=== PATIENT | female | born 1965 | race Caucasian/White ===

== ENCOUNTER 2020-01-15 13:26 | Outpatient (CLI) | payer BC, SELFPAY ==
--- NOTE | ~2020-01-15 | MM_ITS ---
EXAMINATION: MM screening anival BI w anny HISTORY: Screening TECHNIQUE: Craniocaudal and mediolateral oblique 3-D tomosynthesis images were obtained and synthetic 2-D images were generated. CAD analysis was submitted and interpreted. COMPARISON: Comparison to multiple prior studies sequentially, with oldest reviewed study dated 09/25. BREAST PARENCHYMAL COMPOSITION: The breasts are heterogeneously dense, which may obscure small masses . FINDINGS: There is no evidence of suspicious mass, calcification, or architectural distortion to sugg est malignancy in either breast. There has been no suspicious interval change. IMPRESSION: 1. No mammographic evidence of malignancy. 2. Recommend routine screening mammography in one year. BI-RADS Category 1: Negative Reviewed, dictated and finalized at location A.
== END 2020-01-15 13:27 | disposition home or self-care (01) ==
LOC: ANHIMG 13:29
PROVIDERS: PCP Family Medicine; Visit Provider Nurse Practitioner Obstetrics & Gynecology
DX: Z12.31 Encounter for screening mammogram for malignant neoplasm of breast (principal)
CPT/HCPCS: 77063; 77067

== ENCOUNTER 2021-01-18 09:56 | Outpatient (CLI) | payer BC, SELFPAY ==
--- NOTE | ~2021-01-18 | MM_ITS ---
EXAMINATION: MM screening anival BI w anny HISTORY: Screening mammogram TECHNIQUE: Craniocaudal and mediolateral oblique 3-D tomosynthesis images were obtained and synthetic 2-D images were generated. CAD analysis was submitted and interpreted. COMPARISON: 01/15/2020, 10/20/2018, 10/16/2017 bilateral digital screening mammogram examinations BREAST PARENCHYMAL COMPOSITION: The breasts are extremely dense, which lowers the sensitivity of mamm ography. FINDINGS: There is no evidence of suspicious mass, calcification, or architectural distortion to sugg est malignancy in either breast. There has been no suspicious interval change. IMPRESSION: 1. No mammographic evidence of malignancy. 2. Recommend routine screening mammography in one year. BI-RADS Category 1: Negative Reviewed, dictated and finalized at location A.
== END 2021-01-18 09:57 | disposition home or self-care (01) ==
LOC: ANHIMG 09:57
PROVIDERS: PCP Family Medicine; Visit Provider Nurse Practitioner Obstetrics & Gynecology
DX: Z12.31 Encounter for screening mammogram for malignant neoplasm of breast (principal)
CPT/HCPCS: 77063; 77067

== ENCOUNTER 2022-06-15 08:04 | Outpatient (CLI) | payer OTHER, SELFPAY ==
--- NOTE | ~2022-06-15 | MM_ITS ---
EXAMINATION: MM screening anival BI w anny HISTORY: Screening mammogram TECHNIQUE: Craniocaudal and mediolateral oblique 3-D tomosynthesis images were obtained and synthetic 2-D images were generated. CAD analysis was submitted and interpreted. COMPARISON: 01/18/2021, 01/15/2020, 10/20/2018 bilateral screening mammogram examinations BREAST PARENCHYMAL COMPOSITION: The breasts are extremely dense, which lowers the sensitivity of mamm ography. FINDINGS: There grouped subtle microcalcifications in the posterior upper outer right breast. Diagnos tic right mammogram with magnification views is recommended for more definitive evaluation. No suspicious mass, architectural distortion, malignant calcification or skin, skin thickening or re traction of either breast is noted otherwise. IMPRESSION: 1. Subtle indeterminate grouped microcalcifications in the posterior upper outer right breast 2. Diagnostic right mammogram with magnification views is recommended. BI-RADS Category 0: Incomplete: Needs additional imaging evaluation. Reviewed, dictated and finalized at location B. IMPRESSION: 1. Subtle indeterminate grouped microcalcifications in the posterior upper oute r right breast 2. Diagnostic right mammogram with magnification views is recommended. BI-RADS Category 0: Incomplete: Needs additional imaging evaluation.
== END 2022-06-15 08:05 | disposition home or self-care (01) ==
LOC: ANHIMG 08:06
PROVIDERS: PCP Family Medicine; Visit Provider Nurse Practitioner Obstetrics & Gynecology
DX: Z12.31 Encounter for screening mammogram for malignant neoplasm of breast (principal); R92.0 Mammographic microcalcification found on diagnostic imaging of breast
CPT/HCPCS: 77063; 77067

== ENCOUNTER 2022-06-29 13:18 | Outpatient (CLI) | payer OTHER, SELFPAY ==
--- NOTE | ~2022-06-29 | MM_ITS ---
EXAMINATION: MM diagnostic anival RT w anny HISTORY: Follow-up right breast calcifications TECHNIQUE: Additional 3-D tomosynthesis images of the right breast were performed and synthetic 2-D i mages were generated. CAD analysis was submitted and interpreted. COMPARISON: Comparison to multiple prior studies sequentially, with oldest reviewed study dated 10/14. BREAST PARENCHYMAL COMPOSITION: The breasts are extremely dense, which lowers the sensitivity of mamm ography FINDINGS: There are no suspicious masses or architectural distortion. There is a cluster of indetermi juana calcifications in the upper outer quadrant of the right breast posteriorly. IMPRESSION: 1. Clustered indeterminate right breast calcifications, upper outer quadrant. 2. Stereotactic right breast biopsy recommended. BI-RADS category 4, suspicious findings. Reviewed, dictated and finalized at location A.
== END 2022-06-29 13:19 | disposition home or self-care (01) ==
LOC: ANHIMG 13:20
PROVIDERS: PCP Family Medicine; Visit Provider Nurse Practitioner Obstetrics & Gynecology
DX: R92.8 Other abnormal and inconclusive findings on diagnostic imaging of breast (principal); R92.1 Mammographic calcification found on diagnostic imaging of breast
CPT/HCPCS: 77061; 77065; G0279

== ENCOUNTER 2024-02-05 14:42 | Outpatient (CLI) | payer OTHER, SELFPAY ==
--- NOTE | ~2024-02-05 | MM_ITS ---
EXAMINATION: MM screening anival BI w anny HISTORY: Screening TECHNIQUE: Craniocaudal and mediolateral oblique 3-D tomosynthesis images were obtained and synthetic 2-D images were generated. CAD analysis was submitted and interpreted. COMPARISON: Comparison to multiple prior studies sequentially, with oldest reviewed study dated 10/16. BREAST PARENCHYMAL COMPOSITION: Dense: The breasts are extremely dense, which lowers the sensitivity of mammography. FINDINGS: There is no evidence of suspicious mass, calcification, or architectural distortion to sugg est malignancy in either breast. There has been no suspicious interval change. IMPRESSION: 1. No mammographic evidence of malignancy. 2. Recommend routine screening mammography in one year. BI-RADS Category 1: Negative Reviewed, dictated and finalized at location B. 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
== END 2024-02-05 14:43 | disposition home or self-care (01) ==
LOC: ANHIMG 14:44
PROVIDERS: PCP Family Medicine; Visit Provider Nurse Practitioner Obstetrics & Gynecology
DX: Z12.31 Encounter for screening mammogram for malignant neoplasm of breast (principal)
CPT/HCPCS: 77063; 77067

== ENCOUNTER 2024-03-20 08:51 | Outpatient (CLI) | payer OTHER, SELFPAY ==
--- NOTE | 2024-03-20 09:07 | ECHO_ITS ---
Patient Info Name: Savannah Guo Age: 58 years : 1965 Gender: Female Ht: 65 in Wt: 150 lbs BSA: 1.78 m2 HR: 53 bpm BP: 105 / 62 mmHg Technical Quality: Fair Exam Date: 03/20/2024 9:13 AM Exam Location: Echo Lab Patient Status: Outpatient Admit Date: 03/20/2024 Staff Ordering Physician: Tiffanie Nazario PA-C Engineering Specialist Technician: Sumeet Marie RDCS Attending Provider: Manju Gomez MD Referring Physician: Aravind MUNOZ; Exam Type: CA echo doppler color flow Study Info Indications - CARDIAC MURMUR Complete two-dimensional, color flow and Doppler transthoracic echocardiogram is performed. Summary 1. Complete two-dimensional, color flow and Doppler transthoracic echocardiogram is performed. 2. Left ventricular chamber dimension is normal. 3. Left ventricular systolic function is normal, estimated at 60-65%. 4. The left ventricular diastolic function is grade I diastolic dysfunction. 5. E/e' 7 is not elevated. 6. Left atrial chamber dimension is mildly enlarged. 7. There is trace mitral valve regurgitation. 8. No pulmonary hypertension, estimated pulmonary arterial systolic pressure is 30 mmHg. Left Ventricle E/e' 7 is not elevated. Left ventricular chamber dimension is normal. Left ventricular systolic function is normal, estimated at 60-65%. The left ventricular diastolic function is grade I diastolic dysfunction. Right Ventricle Right ventricular systolic function is normal and with normal TAPSE 2.5 cm. Right ventricular chamber dimension is normal. Left Atria Left atrial chamber dimension is mildly enlarged. Right Atria Right atrial chamber dimension is normal. Aortic Valve The aortic valve is trileaflet. There is no aortic valve stenosis. There is no aortic valve regurgitation. Pulmonic Valve There is no pulmonic regurgitation. Mitral Valve There is no mitral valve stenosis. There is trace mitral valve regurgitation. Tricuspid Valve There is no tricuspid valve regurgitation. No pulmonary hypertension, estimated pulmonary arterial systolic pressure is 30 mmHg. Pericardium/Pleural There is no pericardial effusion. Inferior Vena Cava Normal inferior vena cava with >50% collapse upon inspiration consistent with normal right atrial pressure, 5 mmHg. Aorta The aortic root size at the sinus of Valsalva is normal. Left Ventricular Outflow Tract Name Value Normal LVOT 2D LVOT Diameter 1.7 cm LVOT Doppler LVOT Peak Gradient 4 mmHg LVOT Mean Gradient 2 mmHg LVOT VTI 26 cm LVOT VTI/AV VTI Ratio 0.8 LVOT Stroke Volume 60 ml LVOT CO 5.0 l/min LVOT CI 2.8 l/min/m2 Pulmonic Valve Name Value Normal RVOT Doppler RVOT Peak Gradient 4 mmHg PV Doppler PV Peak Gradient 5 mmHg Mitral Valve Name Value Normal MV Doppler MV Peak Gradient 5 mmHg MV Mean Gradient 2 mmHg MV Decel [place] 362 cm/s2 MV PHT 76 ms MV Area (PHT) 2.9 cm2 4.0-5.0 MV Area (Cont Eq VTI) 1.4 cm2 MV Diastolic Function MV E Peak Velocity 94 cm/s MV A Peak Velocity 69 cm/s MV E/A 1.4 MV Decel Time 261 ms MV Annular TDI MV E/e' (Septal) 9.2 <=8.0 MV E/e' (Lateral) 6.8 <=8.0 MV E/e' (Average) 8.0 Tricuspid Valve Name Value Normal TV Regurgitation Doppler TR Peak Velocity 249 cm/s TR Peak Gradient 24 mmHg Estimated PAP/RSVP RA Pressure 5 mmHg <=5 PA Systolic Pressure 30 mmHg <36 RV Systolic Pressure 30 mmHg <36 Aorta Name Value Normal Ascending Aorta Ao Root Diameter (MM) 2.4 cm Ao Root Diam Index (MM) 1.3 cm/m2 Aortic Valve Name Value Normal AV Doppler AV Peak Velocity 131 cm/s AV Peak Gradient 7 mmHg AV Mean Gradient 4 mmHg AV VTI 34 cm AV Area (Cont Eq VTI) 1.8 cm2 >=3.0 AV Area (Cont Eq Neil) 1.8 cm2 AV Regurgitation 2D LVOT Area 2.3 cm2 Ventricles Name Value Normal LV Dimensions 2D/MM IVS Diastolic Thickness (2D) 1.0 cm 0.6-1.0 LVID Diastole (2D) 4.2 cm 3.8-5.2 LVIW Diastolic Thickness (2D) 0.8 cm 0.6-0.9 LVID Systole (2D) 2.6 cm 2.2-3.5 LVOT Diameter 1.7 cm LV Mass (2D Cubed) 121.14 g 67.00-162.00 LV Mass Index (2D Cubed) 68 g/m2 43-95 Relative Wall Thickness (2D) 0.38 LV Fractional Shortening/Ejection Fraction 2D/MM LV Fractional Shortening (2D) 37 % 27-45 LV EF (2D Teicholz) 68 % 54-74 LV Diastolic Volume (4C MOD) 79 ml LV EF (4C MOD) 46 % LV Diastolic Volume (2C MOD) 81 ml LV EF (2C MOD) 64 % LV Diastolic Volume (BP MOD) 81 ml 46-106 LV Diastolic Volume Index (BP MOD) 45 ml/m2 29-61 LV Systolic Volume (BP MOD) 37 ml 14-42 LV Systolic Volume Index (BP MOD) 21 ml/m2 8-24 LV EF (BP MOD) 55 % 54-74 LV Diastolic Length (4C) 7.5 cm LV Systolic Length (4C) 6.3 cm LV Stroke Volume (4C MOD) 36 ml Atria Name Value Normal LA Dimensions LA Dimension (MM) 3.4 cm 2.7-3.8 LA Volume (4C A-L) 51 ml LA Volume (BP A-L) 49 ml RA Dimensions RA Area (4C) 11.2 cm2 <=18.0 Report Signatures
== END 2024-03-20 08:52 | disposition home or self-care (01) ==
PROVIDERS: PCP Family Medicine; Visit Provider Family Medicine
DX: R01.1 Cardiac murmur, unspecified (principal); I51.89 Other ill-defined heart diseases; I51.7 Cardiomegaly
CPT/HCPCS: 93306

== ENCOUNTER 2024-10-03 19:43 | Emergency (ER) | payer OTHER, SELFPAY ==
[2024-10-03 19:45] VITALS: BP 116/70; PULSE 72; RESP 16; TEMP 36.9; O2SAT 100
--- NOTE | 2024-10-03 19:56 | ED.URI ---
HPI - URI/Sore Throat General Chief Complaint: Upper Respiratory Infection Stated Complaint: sore throat Time Seen by Provider: 10/03/24 19:52 Source: patient and RN notes reviewed Mode of arrival: ambulatory Limitations: no limitations History of Present Illness HPI Narrative: Patient presents today complaining of sore throat since yesterday. Currently rates her pain 7/10, which increases with swallowing. She has tried no medication for symptoms prior to arrival. Denies any additional symptoms to include cough, congestion, rhinorrhea. She is also complaining of some diarrhea, 4-5 times per day, for the past week. Denies blood or mucus in the stool. Denies abdominal pain, nausea or vomiting. She has tried some Kaopectate for the diarrhea. Related Data Home Medications ?Medication ?Instructions ?Recorded ?Confirmed ?Last Taken ?Type aspirin 81 mg tablet,delayed 81 mg PO DAILY 03/02/20 04/29/24 Unknown History release (Adult Low Dose Aspirin) furosemide 20 mg tablet 20 mg PO QAM 03/02/20 04/29/24 Unknown History propranolol 20 mg tablet 20 mg PO Q12H 03/02/20 04/29/24 Unknown History spironolactone 50 mg tablet 50 mg PO DAILY 03/02/20 04/29/24 Unknown History (Aldactone) loratadine 10 mg tablet (Claritin) 10 mg PO DAILY 06/29/22 04/29/24 Unknown History thiamine HCl (vitamin B1) 100 mg 100 mg PO DAILY 04/29/24 04/29/24 Unknown History capsule Allergies Allergy/AdvReac Type Severity Reaction Status Date / Time ciprofloxacin Allergy Unknown Unknown Verified 10/03/24 20:06 Penicillins Allergy Unknown Unknown Verified 10/03/24 20:06 [facility] Past Medical History Medical History JAK2 gene mutation Portal vein thrombosis Portal hypertension Hypertension Portal HTN Migraine Polycythemia Family History Family History Grandparent Family history of malignant neoplasm of breast Mother Family history of malignant neoplasm of breast in first degree relative Father Patient's father is Social History Social History Smoking status: Never smoker Second hand tobacco smoke exposure: No Alcohol intake: current Substance use: never Substance use type: does not use Lack of Transportation: No Lack of Food: Never True Current Housing: I Have Housing Concerned About Future Housing: No Difficulty Paying Gas/Electric Bills: No Difficulty Paying for Meds: No Currently Unemployed: No Education: Bachelor's Degree Difficulty w/ Childcare or Family Care: No Living arrangements: with family Gender identity (if verbalized by the patient): Female Sexual Orientation (if Verbalized by the Patient): Straight or Heterosexual Spiritual care concerns: No Agree to blood products: Yes Comments At time of signature, I have reviewed and agree with nursing past medical, surgical, social and family history unless otherwise noted. Please see nursing chart for further information. There is no relevant family history pertinent to the presenting complaint Exam Narrative: GENERAL: Well-appearing, well-nourished, and in no acute distress. HEAD: Normocephalic, atraumatic. EYES: EOMI. No redness or drainage. Conjunctivae normal. ENT: Mucous membranes pink and moist. Nares clear. No rhinorrhea. TMs normal bilaterally. Throat scantly erythematous without edema or exudate. Uvula midline. Grimaces with swallowing. NECK: Normal AROM. Supple. No lymphadenopathy. CHEST: No respiratory distress. Clear to auscultation. HEART: Regular rate and rhythm. No murmur appreciated. ABDOMEN: Soft, nontender, nondistended, normal active bowel sounds. EXTREMITIES: Normal range of motion. No edema. SKIN: Warm, dry, no rash. Capillary refill normal. Normal skin turgor. NEURO: No focal deficits. Alert and oriented x3. Gait steady. PSYCH: Normal affect. No signs of depression or anxiety. Course Course Level of Care: Express Care Visit Vital Signs Vital signs: Vital Signs Temperature 98.4 F 10/03/24 19:45 Pulse Rate 72 10/03/24 19:45 Respiratory Rate 16 10/03/24 19:45 Blood Pressure 116/70 10/03/24 19:45 Pulse Oximetry 100 10/03/24 19:45 Oxygen Delivery Room Air 10/03/24 19:45 Temperature 98.4 F 10/03/24 19:45 Pulse Rate 72 10/03/24 19:45 Respiratory Rate 16 10/03/24 19:45 Blood Pressure 116/70 10/03/24 19:45 Pulse Oximetry 100 10/03/24 19:45 Oxygen Delivery Room Air 10/03/24 19:45 Reviewed MDM - URI/Sore Throat MDM Narrative Medical decision making narrative: 58-year-old female patient with a negative rapid strep screen and culture pending. Complaining of sore throat and diarrhea. No other associated symptoms for either complaint. Sick contacts. Sore throat is likely viral. Strict ED precautions given for both complaints. Discussed with patient that she may need additional stool testing regarding her persistent diarrhea. She does see a food prep worker and will contact them for further evaluation. Vital signs are stable today with no red flag symptoms. She is stable for outpatient treatment. Differential Diagnosis Differential diagnosis: Likely viral infection, pharyngitis and other (strep throat, mononucleosis, diarrhea, enteritis) Lab Data Attestation: I reviewed the patient's lab results. Labs: Lab Results 10/03/24 Range/Units 20:06 POC Grp A Strep Screen Negative (Negative) Critical Care Time Critical Care Time Critical Care Time: No Discharge Plan Discharge Clinical Impression: Pharyngitis Qualifiers: Pharyngitis/tonsillitis etiology: unspecified etiology Qualified Code(s): J02.9 - Acute pharyngitis, unspecified Diarrhea Qualifiers: Diarrhea type: unspecified type Qualified Code(s): R19.7 - Diarrhea, unspecified Patient Disposition: Home Condition: Stable Instructions: Pharyngitis (ED), Acute Diarrhea (ED) Additional Instructions: Your rapid strep swab was negative today at [facility]. You will be notified in a few days if the culture comes back positive for strep, and appropriate antibiotics will be called in for you at that time. Your symptoms are likely due to a viral illness, which is not treated with antibiotics. Viral symptoms can be present for up to 7-10 days. Take Tylenol or ibuprofen for fever or pain. Rest and stay hydrated. Follow up with your PCP in 7 days if symptoms are not improving. Go to the ER immediately if you have any difficulty breathing or swallowing. Please follow-up with your food prep worker regarding your persistent diarrhea. As discussed, if you develop abdominal pain, blood or mucus in your stool, or unable to take in fluids to compensate for the amount of fluid loss, please go to the ER for further evaluation. Patient Language: Hungarian Prescriptions: No Action spironolactone [Aldactone] 50 mg tablet 50 mg PO DAILY propranolol 20 mg tablet 20 mg PO Q12H aspirin [Adult Low Dose Aspirin] 81 mg tablet,delayed release (DR/EC) 81 mg PO DAILY furosemide 20 mg tablet 20 mg PO QAM nortriptyline 10 mg capsule 20 mg PO DAILY Qty: 180 1RF loratadine [Claritin] 10 mg tablet 10 mg PO DAILY momelotinib 200 mg tablet 200 mg PO DAILY Qty: 1 0RF thiamine HCl (vitamin B1) 100 mg capsule 100 mg PO DAILY Follow-up/Referrals: Manju Gomez MD [Primary Care Provider] - Time of Disposition: 20:09
[2024-10-03 20:06] LABS: EDSTREPNEGPOS1 Negative (Negative)
== END 2024-10-03 20:13 | disposition home or self-care (01) ==
PROVIDERS: Emergency Provider Nurse Practitioner; PCP Family Medicine
DX: J02.9 Acute pharyngitis, unspecified (principal); R19.7 Diarrhea, unspecified; K76.6 Portal hypertension; Z15.89 Genetic susceptibility to other disease
CPT/HCPCS: 87081; 87880; 99213; G0463

== ENCOUNTER 2025-02-04 16:03 | Emergency (ER) | payer OTHER, SELFPAY ==
--- NOTE | ~2025-02-04 | XR_ITS ---
XR thoracic spine 3V 02/04/2025 16:31 Indication: Right-sided thoracic pain for 3 weeks. No injury. Procedure: 3 views thoracic spine Comparison: No prior studies for comparison. Findings: There is mild levocurvature of the thoracic spine. Vertebral body heights are maintained. No fracture, subluxation or dislocation. No paraspinal soft tissue abnormality. Pedicles intact. Surrounding osseous structures are unremarkable. There are cholecystectomy clips in the right upper abdomen. Impression: 1: Mild levoscoliosis of the thoracic spine. Reviewed, dictated and finalized at location O. TER CHARGER Impression: 1: Mild levoscoliosis of the thoracic spine.
--- NOTE | 2025-02-04 16:04 | ED_ITS ---
HPI - Back Pain/Injury General Chief Complaint: Back Pain/Injury Stated Complaint: Back Pain Time Seen by Provider: 02/04/25 16:04 Source: patient Mode of arrival: ambulatory Limitations: no limitations History of Present Illness HPI Narrative: Chapis is a 59-year-old female patient presenting to the clinic today with complaints of right-sided thoracic back pain x3 weeks. She reports last week she got out of the hospital from having a GI bleed. She has not been able to take any NSAIDs. Has been taking Tylenol and applying heating pad. States that this does help the pain but is very minimal relief. Pain is constant dull in her right mid back. Denies any radiation of pain. There is no rash. She denies any chest pain or shortness of breath. No injury to her back. No loss of bowel or bladder or numbness and tingling in her lower or upper extremities. Rates pain currently a 4/10. Related Data Home Medications ?Medication ?Instructions ?Recorded ?Confirmed ?Last Taken ?Type aspirin 81 mg tablet,delayed 81 mg PO DAILY 03/02/20 0 04/29/24 Unknown History release (Adult Low Dose Aspirin) furosemide 20 mg tablet 20 mg PO QAM 03/02/20 Unknown History propranolol 20 mg tablet 20 mg PO Q12H 03/02/2004/29 Unknown History spironolactone 50 mg tablet 50 mg PO DAILY 03/02/20 Unknown History (Aldactone) loratadine 10 mg tablet (Claritin) 10 mg PO DAILY 03/12/2404/29/24 Unknown History thiamine HCl (vitamin B1) 100 mg 100 mg PO DAILY 04/2904/29/24 Unknown History capsule allopurinol 300 mg tablet mg 02/04/25 Unknown History imiquimod 5 % topical cream packet topical 02/04/25 U nknown History thiamine HCl (vitamin B1) 100 mg mg 02/04/25 Unknown History tablet Allergies Allergy/AdvReac Type Severity Reaction Status Date / Time ciprofloxacin Allergy Unknown Unknown Verified 02/04/25 16:12 Penicillins Allergy Unknown Unknown Verified 02/04/25 16:12 Review of Systems Review of Systems: Pertinent positives per HPI. Patient denies any fever, chills, rash, headache, visual changes, dizziness, cough, runny nose, sore throat, shortness of breath, chest pain, palpitations, nausea, vomiting, diarrhea, constipation, abdominal pain, or any urinary issues. [facility] Past Medical History Medical History JAK2 gene mutation Portal vein thrombosis Portal hypertension Hypertension Portal HTN Migraine Polycythemia Family History Family History Grandparent Family history of malignant neoplasm of breast Mother Family history of malignant neoplasm of breast in first degree relative Father Patient's father is Social History Social History Second hand tobacco smoke exposure: No Alcohol intake: current Substance use: never Substance use type: does not use Lack of Transportation: No Lack of Food: Never True Current Housing: I Have Housing Concerned About Future Housing: No Difficulty Paying Gas/Electric Bills: No Difficulty Paying for Meds: No Currently Unemployed: No Education: Bachelor's Degree Difficulty w/ Childcare or Family Care: No Living arrangements: with family Gender identity (if verbalized by the patient): Female Sexual Orientation (if Verbalized by the Patient): Straight or Heterosexual Spiritual care concerns: No Agree to blood products: Yes Comments At the time of my signature, I reviewed and agree with the nursing past medical, surgical, social, and family history. There is no relevant family history pertinent to the patient complaint. Exam Narrative: General: Well-developed, well nourished, in no apparent distress Head: Normocephalic, atraumatic. Cardio: Regular rate and rhythm, s1 and s2 normal, no murmur appreciated. Resp: Clear to auscultation bilaterally, no rhonchi, rales, wheezing or rubs. Musculoskeletal: No deformity, tender to palpation over the right thoracic spine/paraspinous musculature just below the bra line, grossly normal range of motion, muscle strength strong and equal in bilateral upper and lower extremities. SLT negative, patellar reflexes 2/4 bilaterally, negative foot drop, normal gait and station Course Course Emergency Course: Portions of this record may have been created with voice recognition software. Level of Care: Express Care Visit Vital Signs Vital signs: Vital Signs Temperature 36.2 C L 02/04/25 16:11 Pulse Rate 72 02/04/25 16:11 Respiratory Rate 16 02/04/25 16:11 Blood Pressure 118/66 02/04/25 16:11 Pulse Oximetry 100 02/04/25 16:11 Temperature 36.2 C L 02/04/25 16:11 Pulse Rate 72 02/04/25 16:11 Respiratory Rate 16 02/04/25 16:11 Blood Pressure 118/66 02/04/25 16:11 Pulse Oximetry 100 02/04/25 16:11 Vital signs reviewed MDM - Back Pain/Injury MDM Narrative Medical decision making narrative: At the time of visit patient is resting comfortably on the exam table. Patient appears to be nontoxic. Complaints of right-sided thoracic back pain x3 weeks. She reports last week she got out of the hospital from having a GI bleed. She has not been able to take any NSAIDs. Has been taking Tylenol and applying heating pad. States that this does help the pain but is very minimal relief. Pain is constant dull in her right mid back. Denies any radiation of pain. There is no rash. She denies any chest pain or shortness of breath. No injury to her back. No loss of bowel or bladder or numbness and tingling in her lower or upper extremities. Rates pain currently a 4/10. Tender to palpation over the right thoracic spine/paraspinous musculature just below the bra line, grossly normal range of motion, muscle strength strong and equal in bilateral upper and lower extremities. SLT negative, patellar reflexes 2/4 bilaterally, negative foot drop, normal gait and station. X-ray of the thoracic spine was ordered Diagnostics: X-ray of the thoracic spine is negative for any sign of fracture or malalignment. Does show mild levoscoliosis of the thoracic spine. Plan: I suspect patient has right-sided thoracic back pain. Recommend lidocaine patches and muscle relaxer. Supportive measures were discussed with the patient and they voiced understanding discharge instructions and agrees to treatment plan. Return precautions reviewed Differential Diagnosis Differential diagnosis: Likely lumbar radiculopathy, strain of lumbar region and thoracic back pain Imaging Data Radiologist's impression: ITS Impressions Thoracic Spine X-Ray 02/04/25 16:34 Impression: 1: Mild levoscoliosis of the thoracic spine. Discharge Plan Discharge Clinical Impression: Acute thoracic back pain Qualifiers: Back pain laterality: right Qualified Code(s): M54.6 - Pain in thoracic spine Patient Disposition: Home Condition: Stable Instructions: Antibiotic Form, Back Pain (ED) Additional Instructions: X-rays negative for any sign of fracture or malalignment of the thoracic spine. Does show mild level scoliosis of the thoracic spine Take any prescription medication only as prescribed-cyclobenzaprine Be mindful of sedation precautions given to you if taking a muscle relaxer. May use heat or ice to the affected area May continue Tylenol as needed for pain Consider massage or chiropractor adjustment if this was discussed with provider May use blue emu, lidocaine patches, or asper cream to affected area- do not apply heat or ice directly over cream- can cause burn. Complete appropriate back stretching exercises. Follow up with your PCP in 3-5 days if symptom persist. Patient Language: Kittitian Prescriptions: New cyclobenzaprine 10 mg tablet 10 mg PO Q8H PRN (Reason: muscle spasm) 7 Days Qty: 21 0RF No Action thiamine HCl (vitamin B1) 100 mg tablet imiquimod 5 % cream in packet TOPICAL allopurinol 300 mg tablet spironolactone [Aldactone] 50 mg tablet 50 mg PO DAILY propranolol 20 mg tablet 20 mg PO Q12H aspirin [Adult Low Dose Aspirin] 81 mg tablet,delayed release (DR/EC) 81 mg PO DAILY furosemide 20 mg tablet 20 mg PO QAM nortriptyline 10 mg capsule 20 mg PO DAILY Qty: 180 1RF loratadine [Claritin] 10 mg tablet 10 mg PO DAILY momelotinib 200 mg tablet 200 mg PO DAILY Qty: 1 0RF thiamine HCl (vitamin B1) 100 mg capsule 100 mg PO DAILY Follow-up/Referrals: Jason,MD Manju [Primary Care Provider, [facility]] Time of Disposition: 16:46 Quality NIHSS Nursing Documentation ED NIHSS nursing documentation: reviewed/agree
[2025-02-04 16:11] VITALS: BP 118/66; PULSE 72; RESP 16; TEMP 36.2; O2SAT 100
== END 2025-02-04 16:47 | disposition home or self-care (01) ==
PROVIDERS: Emergency Provider Nurse Practitioner Family; PCP Family Medicine
DX: M54.6 Pain in thoracic spine (principal); K76.6 Portal hypertension; Z15.89 Genetic susceptibility to other disease; Z86.718 Personal history of other venous thrombosis and embolism
CPT/HCPCS: 72072; 99213; G0463

== ENCOUNTER 2025-02-18 19:53 | Emergency (ER) | payer OTHER, SELFPAY ==
--- NOTE | ~2025-02-18 | XR_ITS ---
EXAMINATION: XR chest 1V portable DATE: 02/18/2025 21:07 INDICATION: Leukocytosis. Recent ERCP with biliary stent placement. TECHNIQUE: A single frontal view of the chest was obtained. COMPARISON: None. FINDINGS: Heart size is normal. Lungs are clear of acute processes. IMPRESSION: 1. No acute findings in the AP portable chest. Reviewed, dictated and finalized at location T. ESSOR OF MANAGEMENT
--- NOTE | ~2025-02-18 | CT_ITS ---
CT HEAD NON-CONTRAST Clinical History: mental status changes Comparison: None Technique: Unenhanced axial images skull base to vertex Coronal, sagittal reformats CT images acquired with automatic exposure control for dose reduction DLP: 605 mGy-cm Findings: Global atrophy. Sulci, ventricles: Unremarkable. No intracerebral hemorrhage. No evidence acute territorial infarct. No mass effect, midline shift. Bony calvarium intact. Visualized paranasal sinuses: Clear. Mastoid air cells: Clear. IMPRESSION: 1. No acute intracranial findings. Reviewed, dictated and finalized at location R. SLATIVE DIRECTOR
--- NOTE | ~2025-02-18 | CT_ITS ---
EXAMINATION: CT abdomen pelvis w con DATE: 02/18/2025 21:54 INDICATION: Leukocytosis. TECHNIQUE: Computed tomography (CT) of the abdomen and pelvis was performed with 100 mL Omnipaque 350 intravenous contrast. Automated exposure control and iterative reconstruction technique were employed. The dose-length product was 495.88 mGy-cm. COMPARISON: CT abdomen 04/19/2011 FINDINGS: The visualized portions of the lung bases demonstrate mild atelectasis. A calcified right lung nodule is consistent with old granulomatous disease. No pleural effusion. The heart size is normal. No pericardial effusion. There is a 1.5 cm hypodense mass in right hepatic lobe. Pneumobilia is noted. There is a stent in the common duct. There are changes of cholecystectomy. Calcifications in the spleen are consistent with old granulomatous disease. There is mild splenomegaly. There is a 12 mm cyst in the body of pancreas, likely a pseudocyst. The adrenal glands and kidneys are normal. There is a periumbilical ventral hernia containing fat and ascites. The appendix is normal. There are no dilated loops of bowel. There is a moderate volume of stool in the colon. There is a small volume of ascites. 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 There is a splenorenal portacaval shunt. There is a periumbilical portacaval shunt. There are widespread enlarged mesenteric veins. There is thrombus in mesenteric veins in left abdomen best appreciated on coronal images. There is a 7.8 x 5.5 x 4.9 cm rim-enhancing fluid collection around the ascending colon. There is a edema of the intra-abdominal fat. There are no pathologically enla rged lymph nodes. There is mild thoracic and lumbar spondylosis. IMPRESSION: 1. 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 2. Portal venous hypertension. 3. Periumbilical ventral hernia containing fat. 4. Small volume of ascites. 5. 7.8 x 5.5 x 4.9 cm rim-enhancing fluid collection around the ascending colon, consistent with abscess. 6. 1.5 cm hypodense mass in right hepatic lobe, which may be benign or malignant. Reviewed, dictated and finalized at location E. H REPAIRER IMPRESSION: 1. 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 2. Portal venous hypertension. 3. Periumbilical ventral hernia containing fat. 4. Small volume of ascites. 5. 7.8 x 5.5 x 4.9 cm rim-enhancing fluid collection around the ascending colon , consistent with abscess. 6. 1.5 cm hypodense mass in right hepatic lobe, which may be benign or malignan t.
--- OUTSIDE RECORDS SUMMARY | 2025-02-18 05:00 | XMS_ITS ---
Author Organization [facility] Address [address] [place] [address] Care Team Providers Care Cabin Supervisor Name Role Phone JIL TEAGUE, JOHN Primary Care Provider Stephanie Solorzano Unavailable [phone] AceStu Behzad [phone] REASON FOR VISIT back pain Encounters Encounter Location Date Provider Diagnosis [facility] [id number] 02/18/2025 Stu Bello Plan Of Treatment Next Appt Details Provider Name:Stu Bello, 1 04/22/2024 01:30:00 PM, [address] [place] [address], [id number], Progress Notes * AYAANArmandoB:1965 (59 yo F)Acc No.[id number]:02/18/2025 Progress Notes Patient: Savannah ALSTON Provider: ZHANG Perez :1965 A ge:59 Y S ex:Female Date:02/18/2025 Address:[address] [place] [address] [id number] Pcp:JOHN LEY MD Subjective: * Chief Complaints: * 1 . Back pain. * Medical History: Objective: * Vitals: Assessment: Plan: * Treatment: * * Electronic signature of ZHANG Do on 02/19/2025 at 05:07 AM ADVERTISING SALES ASSISTANT Sign off status: Pending * Provider: ZHANG Perez Date: 04/20/2024 Generated for Printi ng/Faxing/eTransmitting on: 04/21/2024 05:07 AM ADVERTISING SALES ASSISTANT
[2025-02-18 19:58] VITALS: BP 127/61; PULSE 123; RESP 20; TEMP 36; O2SAT 100
--- NOTE | 2025-02-18 20:02 | ECG_ITS ---
Test Date: 2025-02-18 20:13:43 Measurements Intervals [place] Rate: 124 P: 36 MD: 147 QRS: 3 QRSD: 80 T: 140 QT: 303 QTc: 435 Interpretive Statements SINUS TACHYCARDIA T-WAVE ABNORMALITY, CONSIDER ISCHEMIA Electronically Signed On 02-18-2025 22:32:56 ACTIVITIES LEADER by Yosef Manley D.O
[2025-02-18 20:15] LABS: Hematocrit 26.6 % (37.0-47.0); Hemoglobin 8.0 g/dL (12.0-15.0); Mean Corpuscular HGB Conc 30.1 g/dl (32-36); Mean Corpuscular Hemoglobin 26.8 pg (26-34); Mean Corpuscular Volume 89.0 fl (80-100); Platelet Count Result 324 k/mm3 (150-375); Red Blood Count 2.99 M/mm3 (4.2-5.4); White Blood Count 27.0 K/mm3 (4.5-10.0)
[2025-02-18 20:27] LABS: Alanine Aminotransferase 17 U/L (6-35); Albumin Level 3.7 g/dL (3.5-5.1); Alkaline Phosphatase 183 U/L (38-126); Anion Gap 8 mmol/L (4-12); Aspartate Amino Transferase 31 U/L (14-36); Bilirubin,Total 1.7 mg/dL (0.2-1.3); Blood Urea Nitrogen 26 mg/dL (7-17); Calcium 10.0 mg/dL (8.4-10.2); Carbon Dioxide 28 mmol/L (22-30); Chloride 95 mmol/L (98-107); Estimated CRCL calculation 41 ml/min; Estimated Glomerular Filt Rate 45; Glucose 155 mg/dL (65-110); Potassium 3.7 mmol/L (3.4-5.0); Sodium 131 mmol/L (137-145); Total Protein 7.1 g/dL (6.3-8.2)
[2025-02-18 20:34] LABS: INR 1.3; Prothrombin Time 16.7 Seconds (11.1-14.7)
[2025-02-18 20:35] LABS: Partial Thromboplastin Time 32.5 Seconds (22.3-36.8)
[2025-02-18 20:46] LABS: Band Neutrophils Percent 6 % (0-6); Basophils Absolute Manual 0.27 K/mm3 (0.0-0.1); Basophils Percent Manual 1 % (0-1); Eosinophils Absolute Manual 0.81 K/mm3 (0.02-0.50); Eosinophils Percent Manual 3 % (0-4); Lymphocytes Absolute Manual 2.16 K/mm3 (1.1-4.5); Lymphocytes Percent Manual 8.0 % (18-44); Monocytes Absolute Manual 1.89 K/mm3 (0.1-0.90); Monocytes Percent Manual 7 % (3-9); Neutrophils Absolute Manual 21.87 K/mm3 (1.3-6.7); Neutrophils Percent Manual 75 % (46-73); Schistocytes 1+; Total Cells Counted 100
[2025-02-18 20:47] LABS: Anisocytosis 3+; Hypochromasia 1+
[2025-02-18 20:48] LABS: Polychromasia Occasional
[2025-02-18 21:35] LABS: Troponin I < 0.012 ng/mL (0.000-0.034)
[2025-02-18 21:43] LABS: Ammonia 26 umol/L (9-30)
[2025-02-18 21:43] LABS: Procalcitonin 0.3 ng/mL
[2025-02-18 22:07] LABS: Influenza A QL RT-PCR Negative (Negative); Influenza B QL RT-PCR Negative (Negative); RSV RNA, RT-PCR Negative (Negative); SARS-CoV-2 RNA PCR Negative (Negative)
[2025-02-18 22:19] VITALS: O2SAT 100
--- NOTE | 2025-02-18 23:47 | ED.GENADULT ---
HPI - General Adult General Chief complaint: Altered Mental Status <Liban Diaz MD - Last Filed: 02/19/25 01:42> Stated complaint: AMS x 3 days/fatigue <Liban Diaz MD - Last Filed: 02/19/25 01:42> Time Seen by Provider: 02/18/25 21:00 <Liban Diaz MD - Last Filed: 02/19/25 01:42> History of Present Illness HPI narrative: Patient is a 59-year-old female who presents emergency department with chief complaint of altered mental status and not feeling well per the patient's family patient has been more confused and very lethargic the patient had an ERCP on the at [facility] and reports that her symptoms have been gradually progressive patient has not had any jaundice numbness not had a fever <Liban Diaz MD - Last Filed: 02/19/25 01:42> Related Data Home medications: Home Medications ?Medication ?Instructions ?Recorded ?Confirmed ?Last Taken ?Type aspirin 81 mg tablet,delayed 81 mg PO DAILY 03/02/20 02/19/25 Unknown History release (Adult Low Dose Aspirin) furosemide 20 mg tablet 40 mg PO QAM 03/02/20 02/19/25 Unknown History propranolol 20 mg tablet 20 mg PO Q12H 03/02/20 02/19/25 Unknown History spironolactone 50 mg tablet 50 mg PO DAILY 03/02/20 02/19/25 Unknown History (Aldactone) loratadine 10 mg tablet (Claritin) 10 mg PO DAILY 06/29/22 02/19/25 Unknown History thiamine HCl (vitamin B1) 100 mg 100 mg PO DAILY 04/29/24 02/19/25 Unknown History capsule allopurinol 300 mg tablet 300 mg PO DAILY 02/04/25 02/19/25 Unknown History imiquimod 5 % topical cream packet topical 02/04/25 Unknown History thiamine HCl (vitamin B1) 100 mg mg 02/04/25 Unknown History tablet momelotinib 200 mg tablet (Ojjaara) 200 mg PO DAILY 02/19/25 02/19/25 Unknown History pantoprazole 40 mg tablet,delayed 40 mg PO HS 02/19/25 02/19/25 Unknown History release (Protonix) <Liban Diaz MD - Last Filed: 02/19/25 01:42> Allergies/adverse reactions: Allergies Allergy/AdvReac Type Severity Reaction Status Date / Time ciprofloxacin Allergy Unknown Unknown Verified 02/19/25 00:17 Penicillins Allergy Unknown Unknown Verified 02/19/25 00:17 <Liban Diaz MD - Last Filed: 02/19/25 01:42> Review of Systems Review of Systems: A 10 system review of systems was completed on the patient and is negative except for what is stated in the HPI. Nursing and ancillary documentation was reviewed. <Liban Diaz MD - Last Filed: 02/19/25 01:42> PMFSH Past Medical History Medical History: Medical History JAK2 gene mutation Portal vein thrombosis Portal hypertension Hypertension Portal HTN Migraine Polycythemia <Liban Diaz MD - Last Filed: 02/19/25 01:42> Family History Family History: Family History Grandparent Family history of malignant neoplasm of breast Mother Family history of malignant neoplasm of breast in first degree relative Father Patient's father is <Liban Diaz MD - Last Filed: 02/19/25 01:42> Social History Social History: Social History Smoking status: Never smoker Second hand tobacco smoke exposure: No Alcohol intake: current Substance use: never Substance use type: does not use Lack of Transportation: No Lack of Food: Never True Current Housing: I Have Housing Concerned About Future Housing: No Difficulty Paying Gas/Electric Bills: No Difficulty Paying for Meds: No Currently Unemployed: No Education: Bachelor's Degree Difficulty w/ Childcare or Family Care: No Living arrangements: with family Gender identity (if verbalized by the patient): Female Sexual Orientation (if Verbalized by the Patient): Straight or Heterosexual Spiritual care concerns: No Agree to blood products: Yes <Liban Diaz MD - Last Filed: 02/19/25 01:42> Exam Narrative: GENERAL: Well-appearing, well-nourished, and in no acute distress. HEAD: Normocephalic, atraumatic. EYES: PERRLA and EOMI. ENT: Nares clear, no rhinorrhea or epistaxis. Mucous membranes dry. NECK: Supple. CHEST: Clear to auscultation. No respiratory distress. HEART: Regular rate and rhythm. No murmur heard. Normal peripheral pulses. ABDOMEN: Soft, nontender, nondistended, normal active bowel sounds. EXTREMITIES: Normal range of motion. No edema. SKIN: Warm, dry, no rash. NEURO: No focal deficits. Alert and oriented x3 slow to respond. PSYCH: Normal mood and affect. <Liban Diaz MD - Last Filed: 02/19/25 01:42> Course Vital Signs Vital signs: Vital Signs Temperature 96.8 F L 02/18/25 19:58 Pulse Rate 123 H 02/18/25 19:58 Respiratory Rate 20 02/18/25 19:58 Blood Pressure 127/61 02/18/25 19:58 Pulse Oximetry 100 02/18/25 19:58 Temperature 96.8 F L 02/18/25 19:58 Pulse Rate 119 H 02/19/25 17:16 Respiratory Rate 20 02/19/25 17:16 Blood Pressure 117/77 02/19/25 17:16 Pulse Oximetry 100 02/19/25 17:16 Oxygen Delivery Room Air 02/18/25 22:19 <Liban Diaz MD - Last Filed: 02/19/25 01:42> Vital Signs Temperature 96.8 F L 02/18/25 19:58 Pulse Rate 123 H 02/18/25 19:58 Respiratory Rate 20 02/18/25 19:58 Blood Pressure 127/61 02/18/25 19:58 Pulse Oximetry 100 02/18/25 19:58 Temperature 96.8 F L 02/18/25 19:58 Pulse Rate 119 H 02/19/25 17:16 Respiratory Rate 20 02/19/25 17:16 Blood Pressure 117/77 02/19/25 17:16 Pulse Oximetry 100 02/19/25 17:16 Oxygen Delivery Room Air 02/18/25 22:19 <Cisco Dodd III, DO - Last Filed: 02/19/25 18:33> Medical Decision Making MDM Narrative Medical decision making narrative: Differential diagnosis includes sepsis, biliary obstruction, pneumonia, CT head showed no acute abnormality Patient was fluid resuscitated heart rate is improved to 110 Laboratory studies showed a white count 20 7.0 hemoglobin was 8.0 blood cultures were obtained on the patient lactic acid was 1.9 the patient was empirically started on cefepime and vanc Due to the patient just having a ERCP with biliary stent placement at [facility] after discussion with the hospitalist locally felt the patient will be best served back at the facility where he had received case was discussed with the hospitalist at [facility] and was accepted by Dr. Coyle <Liban Diaz MD - Last Filed: 02/19/25 01:42> Differential diagnosis includes sepsis, biliary obstruction, pneumonia, CT head showed no acute abnormality Patient was fluid resuscitated heart rate is improved to 110 Laboratory studies showed a white count 20 7.0 hemoglobin was 8.0 blood cultures were obtained on the patient lactic acid was 1.9 the patient was empirically started on cefepime and vanc Due to the patient just having a ERCP with biliary stent placement at [facility] after discussion with the hospitalist locally felt the patient will be best served back at the facility where he had received case was discussed with the hospitalist at [facility] and was accepted by Dr. Coyle Still no bed at [facility]. Family understandable frustrated with lack of progress. Will feed patient and give po fluids. Will repeat labs. Yousif 1730 discussed with Shirley Strange. would prefer to transfer. <Cisco Dodd III, DO - Last Filed: 02/19/25 18:33> Vital Signs Vital Signs: Vital Signs Temperature 96.8 F L 02/18/25 19:58 Pulse Rate 123 H 02/18/25 19:58 Respiratory Rate 20 02/18/25 19:58 Blood Pressure 127/61 02/18/25 19:58 Pulse Oximetry 100 02/18/25 19:58 Temperature 96.8 F L 02/18/25 19:58 Pulse Rate 119 H 02/19/25 17:16 Respiratory Rate 20 02/19/25 17:16 Blood Pressure 117/77 02/19/25 17:16 Pulse Oximetry 100 02/19/25 17:16 Oxygen Delivery Room Air 02/18/25 22:19 <Liban Diaz MD - Last Filed: 02/19/25 01:42> Vital Signs Temperature 96.8 F L 02/18/25 19:58 Pulse Rate 123 H 02/18/25 19:58 Respiratory Rate 20 02/18/25 19:58 Blood Pressure 127/61 02/18/25 19:58 Pulse Oximetry 100 02/18/25 19:58 Temperature 96.8 F L 02/18/25 19:58 Pulse Rate 119 H 02/19/25 17:16 Respiratory Rate 20 02/19/25 17:16 Blood Pressure 117/77 02/19/25 17:16 Pulse Oximetry 100 02/19/25 17:16 Oxygen Delivery Room Air 02/18/25 22:19 <Cisco Lorenzver III, DO - Last Filed: 02/19/25 18:33> Lab Data Result diagrams: 02/18/25 20:09 02/18/25 20:09 <Liban Diaz MD - Last Filed: 02/19/25 01:42> Labs: Lab Results 02/18/25 02/18/25 02/18/25 Range/Units 20:09 21:19 21:20 WBC 27.0 H (4.5-10.0) K/mm3 RBC 2.99 L (4.2-5.4) M/mm3 Hgb 8.0 L (12.0-15.0) g/dL Hct 26.6 L (37.0-47.0) % MCV 89.0 (80-100) fl MCH 26.8 (26-34) pg MCHC 30.1 L (32-36) g/dl RDW 26.3 H (11.5-14.5) % Plt Count 324 (150-375) k/mm3 MPV 10.4 (7.4-10.4) fl Immature Gran % (Auto) Not Reportable Neut % (Auto) Not Reportable Lymph % (Auto) Not Reportable Nicholas % (Auto) Not Reportable Eos % (Auto) Not Reportable Baso % (Auto) Not Reportable Lymph # (Auto) Not Reportable Nicholas # (Auto) Not Reportable Eos # (Auto) Not Reportable Baso # (Auto) Not Reportable Abs Immat Gran (auto) Not Reportable Absolute Neuts (auto) Not Reportable Absolute Nucleated RBC Not Reportable Total Counted 100 Neutrophils % (Manual) 75 H (46-73) % Band Neutrophils % 6 (0-6) % Lymphocytes % (Manual) 8.0 L (18-44) % Monocytes % (Manual) 7 (3-9) % Eosinophils % (Manual) 3 (0-4) % Basophils % (Manual) 1 (0-1) % Nucleated RBC % Not Reportable Abs Neuts (Manual) 21.87 H (1.3-6.7) K/mm3 Abs Lymphs (Manual) 2.16 (1.1-4.5) K/mm3 Abs Monocytes (Manual) 1.89 H (0.1-0.90) K/mm3 Absolute Eos (Manual) 0.81 H (0.02-0.50) K/mm3 Abs Basophils (Manual) 0.27 H (0.0-0.1) K/mm3 Nucleated RBCs 5 % Platelet Estimate Adequate (Adequate) Polychromasia Occasional Hypochromasia 1+ Anisocytosis 3+ Schistocytes 1+ PT 16.7 H (11.1-14.7) Seconds INR 1.3 APTT 32.5 (22.3-36.8) Seconds Sodium 131 L (137-145) mmol/L Potassium 3.7 (3.4-5.0) mmol/L Chloride 95 L (98-107) mmol/L Carbon Dioxide 28 (22-30) mmol/L Anion Gap 8 (4-12) mmol/L BUN 26 H (7-17) mg/dL Creatinine 1.23 H (0.7-1.0) mg/dL Estim Creat Clear Calc 41 ml/min Estimated GFR 45 L (59 - ) Glucose 155 H (65-110) mg/dL Lactic Acid 1.9 (0.7-2.0) mmol/L Calcium 10.0 (8.4-10.2) mg/dL Total Bilirubin 1.7 H (0.2-1.3) mg/dL AST 31 (14-36) U/L ALT 17 (6-35) U/L Alkaline Phosphatase 183 H (38-126) U/L Ammonia 26 (9-30) umol/L Troponin I < 0.012 (0.000-0.034) ng/mL Total Protein 7.1 (6.3-8.2) g/dL Albumin 3.7 (3.5-5.1) g/dL Lipase Procalcitonin 0.3 ng/mL Urine Color (Yellow) Urine Appearance (Clear) Urine pH (5.0-9.0) Ur Specific [place] (1.001-1.035) Urine Protein (Negative) mg/dL Urine Glucose (UA) (Negative) mg/dL Urine Ketones (Negative) mg/dL Ur Blood (Man) (Negative) Urine Nitrate (Negative) Urine Bilirubin (Negative) Urine Urobilinogen (<2.0) mg/dL Leukocyte Esterase Rfl (Negative) RAHUL/UL Urine RBC (0-2) /hpf Urine WBC (0-3) /hpf Ur Squamous Epith Cells (Few) /hpf Urine Bacteria /hpf Urine Casts Influenza A (RT-PCR) Negative (Negative) Influenza B (RT-PCR) Negative (Negative) RSV (RT-PCR) Negative (Negative) SARS-CoV-2 RNA (RT-PCR) Negative (Negative) 02/19/25 02/19/25 Range/Units 00:09 18:16 WBC Pending (4.5-10.0) K/mm3 RBC Pending (4.2-5.4) M/mm3 Hgb Pending (12.0-15.0) g/dL Hct Pending (37.0-47.0) % MCV Pending (80-100) fl MCH Pending (26-34) pg MCHC Pending (32-36) g/dl RDW Pending (11.5-14.5) % Plt Count Pending (150-375) k/mm3 MPV Pending (7.4-10.4) fl Immature Gran % (Auto) Pending Neut % (Auto) Pending Lymph % (Auto) Pending Nicholas % (Auto) Pending Eos % (Auto) Pending Baso % (Auto) Pending Lymph # (Auto) Pending Nicholas # (Auto) Pending Eos # (Auto) Pending Baso # (Auto) Pending Abs Immat Gran (auto) Pending Absolute Neuts (auto) Pending Absolute Nucleated RBC Pending Total Counted Neutrophils % (Manual) (46-73) % Band Neutrophils % (0-6) % Lymphocytes % (Manual) (18-44) % Monocytes % (Manual) (3-9) % Eosinophils % (Manual) (0-4) % Basophils % (Manual) (0-1) % Nucleated RBC % Pending Abs Neuts (Manual) (1.3-6.7) K/mm3 Abs Lymphs (Manual) (1.1-4.5) K/mm3 Abs Monocytes (Manual) (0.1-0.90) K/mm3 Absolute Eos (Manual) (0.02-0.50) K/mm3 Abs Basophils (Manual) (0.0-0.1) K/mm3 Nucleated RBCs % Platelet Estimate (Adequate) Polychromasia Hypochromasia Anisocytosis Schistocytes PT (11.1-14.7) Seconds INR APTT (22.3-36.8) Seconds Sodium Pending (137-145) mmol/L Potassium Pending (3.4-5.0) mmol/L Chloride Pending (98-107) mmol/L Carbon Dioxide Pending (22-30) mmol/L Anion Gap Pending (4-12) mmol/L BUN Pending (7-17) mg/dL Creatinine Pending (0.7-1.0) mg/dL Estim Creat Clear Calc Pending ml/min Estimated GFR Pending (59 - ) Glucose Pending (65-110) mg/dL Lactic Acid (0.7-2.0) mmol/L Calcium Pending (8.4-10.2) mg/dL Total Bilirubin Pending (0.2-1.3) mg/dL AST Pending (14-36) U/L ALT Pending (6-35) U/L Alkaline Phosphatase Pending (38-126) U/L Ammonia (9-30) umol/L Troponin I (0.000-0.034) ng/mL Total Protein Pending (6.3-8.2) g/dL Albumin Pending (3.5-5.1) g/dL Lipase Pending Procalcitonin ng/mL Urine Color Yellow (Yellow) Urine Appearance Clear (Clear) Urine pH 6.5 (5.0-9.0) Ur Specific [place] > 1.045 H (1.001-1.035) Urine Protein Trace (Negative) mg/dL Urine Glucose (UA) Negative (Negative) mg/dL Urine Ketones Negative (Negative) mg/dL Ur Blood (Man) Negative (Negative) Urine Nitrate Negative (Negative) Urine Bilirubin Negative (Negative) Urine Urobilinogen 1.0 (<2.0) mg/dL Leukocyte Esterase Rfl Negative (Negative) RAHUL/UL Urine RBC 0-2 (0-2) /hpf Urine WBC 0-5 (0-3) /hpf Ur Squamous Epith Cells Few (Few) /hpf Urine Bacteria Rare /hpf Urine Casts 3-5 Influenza A (RT-PCR) (Negative) Influenza B (RT-PCR) (Negative) RSV (RT-PCR) (Negative) SARS-CoV-2 RNA (RT-PCR) (Negative) <Liban Diaz MD - Last Filed: 02/19/25 01:42> Lab Results 02/18/25 02/18/25 02/18/25 Range/Units 20:09 21:19 21:20 WBC 27.0 H (4.5-10.0) K/mm3 RBC 2.99 L (4.2-5.4) M/mm3 Hgb 8.0 L (12.0-15.0) g/dL Hct 26.6 L (37.0-47.0) % MCV 89.0 (80-100) fl MCH 26.8 (26-34) pg MCHC 30.1 L (32-36) g/dl RDW 26.3 H (11.5-14.5) % Plt Count 324 (150-375) k/mm3 MPV 10.4 (7.4-10.4) fl Immature Gran % (Auto) Not Reportable Neut % (Auto) Not Reportable Lymph % (Auto) Not Reportable Nicholas % (Auto) Not Reportable Eos % (Auto) Not Reportable Baso % (Auto) Not Reportable Lymph # (Auto) Not Reportable Nicholas # (Auto) Not Reportable Eos # (Auto) Not Reportable Baso # (Auto) Not Reportable Abs Immat Gran (auto) Not Reportable Absolute Neuts (auto) Not Reportable Absolute Nucleated RBC Not Reportable Total Counted 100 Neutrophils % (Manual) 75 H (46-73) % Band Neutrophils % 6 (0-6) % Lymphocytes % (Manual) 8.0 L (18-44) % Monocytes % (Manual) 7 (3-9) % Eosinophils % (Manual) 3 (0-4) % Basophils % (Manual) 1 (0-1) % Nucleated RBC % Not Reportable Abs Neuts (Manual) 21.87 H (1.3-6.7) K/mm3 Abs Lymphs (Manual) 2.16 (1.1-4.5) K/mm3 Abs Monocytes (Manual) 1.89 H (0.1-0.90) K/mm3 Absolute Eos (Manual) 0.81 H (0.02-0.50) K/mm3 Abs Basophils (Manual) 0.27 H (0.0-0.1) K/mm3 Nucleated RBCs 5 % Platelet Estimate Adequate (Adequate) Polychromasia Occasional Hypochromasia 1+ Anisocytosis 3+ Schistocytes 1+ PT 16.7 H (11.1-14.7) Seconds INR 1.3 APTT 32.5 (22.3-36.8) Seconds Sodium 131 L (137-145) mmol/L Potassium 3.7 (3.4-5.0) mmol/L Chloride 95 L (98-107) mmol/L Carbon Dioxide 28 (22-30) mmol/L Anion Gap 8 (4-12) mmol/L BUN 26 H (7-17) mg/dL Creatinine 1.23 H (0.7-1.0) mg/dL Estim Creat Clear Calc 41 ml/min Estimated GFR 45 L (59 - ) Glucose 155 H (65-110) mg/dL Lactic Acid 1.9 (0.7-2.0) mmol/L Calcium 10.0 (8.4-10.2) mg/dL Total Bilirubin 1.7 H (0.2-1.3) mg/dL AST 31 (14-36) U/L ALT 17 (6-35) U/L Alkaline Phosphatase 183 H (38-126) U/L Ammonia 26 (9-30) umol/L Troponin I < 0.012 (0.000-0.034) ng/mL Total Protein 7.1 (6.3-8.2) g/dL Albumin 3.7 (3.5-5.1) g/dL Lipase Procalcitonin 0.3 ng/mL Urine Color (Yellow) Urine Appearance (Clear) Urine pH (5.0-9.0) Ur Specific [place] (1.001-1.035) Urine Protein (Negative) mg/dL Urine Glucose (UA) (Negative) mg/dL Urine Ketones (Negative) mg/dL Ur Blood (Man) (Negative) Urine Nitrate (Negative) Urine Bilirubin (Negative) Urine Urobilinogen (<2.0) mg/dL Leukocyte Esterase Rfl (Negative) RAHUL/UL Urine RBC (0-2) /hpf Urine WBC (0-3) /hpf Ur Squamous Epith Cells (Few) /hpf Urine Bacteria /hpf Urine Casts Influenza A (RT-PCR) Negative (Negative) Influenza B (RT-PCR) Negative (Negative) RSV (RT-PCR) Negative (Negative) SARS-CoV-2 RNA (RT-PCR) Negative (Negative) 02/19/25 02/19/25 Range/Units 00:09 18:16 WBC Pending (4.5-10.0) K/mm3 RBC Pending (4.2-5.4) M/mm3 Hgb Pending (12.0-15.0) g/dL Hct Pending (37.0-47.0) % MCV Pending (80-100) fl MCH Pending (26-34) pg MCHC Pending (32-36) g/dl RDW Pending (11.5-14.5) % Plt Count Pending (150-375) k/mm3 MPV Pending (7.4-10.4) fl Immature Gran % (Auto) Pending Neut % (Auto) Pending Lymph % (Auto) Pending Nicholas % (Auto) Pending Eos % (Auto) Pending Baso % (Auto) Pending Lymph # (Auto) Pending Nicholas # (Auto) Pending Eos # (Auto) Pending Baso # (Auto) Pending Abs Immat Gran (auto) Pending Absolute Neuts (auto) Pending Absolute Nucleated RBC Pending Total Counted Neutrophils % (Manual) (46-73) % Band Neutrophils % (0-6) % Lymphocytes % (Manual) (18-44) % Monocytes % (Manual) (3-9) % Eosinophils % (Manual) (0-4) % Basophils % (Manual) (0-1) % Nucleated RBC % Pending Abs Neuts (Manual) (1.3-6.7) K/mm3 Abs Lymphs (Manual) (1.1-4.5) K/mm3 Abs Monocytes (Manual) (0.1-0.90) K/mm3 Absolute Eos (Manual) (0.02-0.50) K/mm3 Abs Basophils (Manual) (0.0-0.1) K/mm3 Nucleated RBCs % Platelet Estimate (Adequate) Polychromasia Hypochromasia Anisocytosis Schistocytes PT (11.1-14.7) Seconds INR APTT (22.3-36.8) Seconds Sodium Pending (137-145) mmol/L Potassium Pending (3.4-5.0) mmol/L Chloride Pending (98-107) mmol/L Carbon Dioxide Pending (22-30) mmol/L Anion Gap Pending (4-12) mmol/L BUN Pending (7-17) mg/dL Creatinine Pending (0.7-1.0) mg/dL Estim Creat Clear Calc Pending ml/min Estimated GFR Pending (59 - ) Glucose Pending (65-110) mg/dL Lactic Acid (0.7-2.0) mmol/L Calcium Pending (8.4-10.2) mg/dL Total Bilirubin Pending (0.2-1.3) mg/dL AST Pending (14-36) U/L ALT Pending (6-35) U/L Alkaline Phosphatase Pending (38-126) U/L Ammonia (9-30) umol/L Troponin I (0.000-0.034) ng/mL Total Protein Pending (6.3-8.2) g/dL Albumin Pending (3.5-5.1) g/dL Lipase Pending Procalcitonin ng/mL Urine Color Yellow (Yellow) Urine Appearance Clear (Clear) Urine pH 6.5 (5.0-9.0) Ur Specific [place] > 1.045 H (1.001-1.035) Urine Protein Trace (Negative) mg/dL Urine Glucose (UA) Negative (Negative) mg/dL Urine Ketones Negative (Negative) mg/dL Ur Blood (Man) Negative (Negative) Urine Nitrate Negative (Negative) Urine Bilirubin Negative (Negative) Urine Urobilinogen 1.0 (<2.0) mg/dL Leukocyte Esterase Rfl Negative (Negative) RAHUL/UL Urine RBC 0-2 (0-2) /hpf Urine WBC 0-5 (0-3) /hpf Ur Squamous Epith Cells Few (Few) /hpf Urine Bacteria Rare /hpf Urine Casts 3-5 Influenza A (RT-PCR) (Negative) Influenza B (RT-PCR) (Negative) RSV (RT-PCR) (Negative) SARS-CoV-2 RNA (RT-PCR) (Negative) <Cisco Crespo Doddmartha NEWSOME DO - Last Filed: 02/19/25 18:33> Critical Care Time Critical Care Time Critical Care Time: Yes <Liban Diaz MD - Last Filed: 02/19/25 01:42> Total Critical Care Time: 35 <Liban Diaz MD - Last Filed: 02/19/25 01:42> Discharge Plan Discharge Clinical Impression: Leukocytosis, Altered mental status, Generalized weakness, Sepsis <Liban Diaz MD - Last Filed: 02/19/25 01:42> Patient Disposition: Acute Care Hospital <Liban Diaz MD - Last Filed: 02/19/25 01:42> Condition: Stable <Liban Diaz MD - Last Filed: 02/19/25 01:42> Patient Language: Maltese <Liban Diaz MD - Last Filed: 02/19/25 01:42> Prescriptions: No Action thiamine HCl (vitamin B1) 100 mg tablet imiquimod 5 % cream in packet TOPICAL allopurinol 300 mg tablet 300 mg PO DAILY spironolactone [Aldactone] 50 mg tablet 50 mg PO DAILY propranolol 20 mg tablet 20 mg PO Q12H aspirin [Adult Low Dose Aspirin] 81 mg tablet,delayed release (DR/EC) 81 mg PO DAILY furosemide 20 mg tablet 40 mg PO QAM nortriptyline 10 mg capsule 20 mg PO DAILY Qty: 180 1RF loratadine [Claritin] 10 mg tablet 10 mg PO DAILY momelotinib 200 mg tablet 200 mg PO DAILY Qty: 1 0RF thiamine HCl (vitamin B1) 100 mg capsule 100 mg PO DAILY Ojjaara 200 mg tablet 200 mg PO DAILY pantoprazole [Protonix] 40 mg tablet,delayed release (DR/EC) 40 mg PO HS cyclobenzaprine 10 mg tablet 10 mg PO Q8H PRN (Reason: muscle spasm) 7 Days Qty: 21 0RF <Liban Diaz MD - Last Filed: 02/19/25 01:42> Follow-up/Referrals: Jason,MD Manju [Primary Care Provider, Family Practice] <Liban Diaz MD - Last Filed: 02/19/25 01:42>
[2025-02-19] VITALS (88 sets, daily range): BP systolic 102–153; BP diastolic 40–81; PULSE 110–142; RESP 15–29; TEMP 36.7–37.3; O2SAT 95–100
[2025-02-19] MEDS: SODIUM CHLORIDE 0.9% IV 1,000 ML 999 ML IV CONT ×2 (00:14)
[2025-02-19 00:19] LABS: Add Urine Microscopic? YES; Appearance Urine Clear (Clear); Glucose Urine UA Negative (Negative); Leukocyte Esterase Ur Negative LEU/UL (Negative); Nitrate Urine Negative (Negative); Specific Grav Ur > 1.045 (1.001-1.035)
[2025-02-19] MEDS: CEFEPIME 2 GM in SODIUM CHLORIDE 0.9% IV 50 ML 100 ML IVPB ×2 (01:31→13:38)
[2025-02-19] MEDS: VANCOMYCIN 1,750 MG/NS 500 ML 1,750 MG/500 ML BAG 250 MG IVPB (02:19)
--- OUTSIDE RECORDS SUMMARY | 2025-02-19 05:06 | XMS_ITS | Data Portability ---
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 Patient will come back in a year unless there are new symptoms. Not available 06/16/2021 15:24:48 08/29/2023 08/29/2023 Annual gynecological exam performed. Patient will come back in a year unless there are new symptoms. [email or web address] Not available 08/29/2023 15:23:13 09/04/2024 09/04/2024 Annual gynecological exam performed. Patient will come back in a year unless there are new symptoms. Not available 09/04/2024 11:42:36 Plan of Treatment Reminders Order Date Submit Date Provider Last Modified By Organization Details Last Modified Time Details Appointments None recorded. Lab pap, IG + HR HPV - HPV regardless but if HPV is positive need subtyping 16,18/45 2024 025 [facility] (Lab), [address], [place], [address], 11:42:07 test, urine 2020 021 [email or web address] [place], [address], [address], [place], [address], 12:46:23 Referral None recorded. Procedures None recorded. Surgeries None recorded. Imaging MAMMO, screening, digital, bilateral 2024 025 [facility], [address], [place], [address], 5 04:02:05 MAMMO, screening, bilateral [address], [facility], [place], [address], 4 11:04:24 Medication Orders None recorded. Patient TargetsNo targets recorded. Patient InstructionsNo instructions recorded. Reason for Referral None Reported. Results Created Date Observation Date Name Description Value Unit Range Abnormal Flag Note LastModifiedBy Organization Detail LastModifiedTime 10/02/19 21 10/01/2020 SURGI KATI PATHO LOGY surgical pathology ([facility]) SEE RESULT S BELOW CASE REPOR T: Surgi kati Patho logy Repor t Case: [id number] Autho layton rondon Provi garrett: Azra Otoole MD Colle cted: 10/01 1442 Order ing Locat ion: [place] Patho logy Recei larisa: 10/02 0532 Patho logis t: Moshe Naranjo MD Speci men: Cervi x, LEEP FINAL DIAGN OSIS: Cervi x, loop elect rosur gical excis ion proce dure: -High -grad e squam ous intra epith elial lesio n (IRVIN- 2), excis ed. -Surg ical priscila ns free of dyspl connor. Elect tremaine mcallister by Moshe Naranjo MD on 021 at 9:06 AM ----- ----- ----- ----- ----- ----- ----- ----- ----- ----- ----- ----- ----- ----- ----- ----- ----- ---- CLINI KATI INFOR MATIO N: not provi ded MICRO SCOPI C DESCR IPTIO N: A micro scopi c exami natio n was perfo rmed. GROSS DESCR IPTIO N: A. Cervi x. The speci men is recei larisa in forma ravin label ed with the patie nt's name, demog raphefrain cs, and LEEP . It consi sts of a araujo-p ink, unori ented , intac t cervi kati LEEP measu ring 2.0 x 2.0 x 0.6 cm. The ectoc ervic al mucos a is pink- araujo and luna h. The endoc ervic al resec tion priscila n is inked yello w and the circu mfere ntial priscila n is inked black . The speci men is radia lly secti oned and submi tted entir bhumi and seque ntial ly in casse ttes A1-A4 . Gross ed by Noris Simmons Not Available [facility] (Lab) [address], [place], [address], 10/03/2020 10:09:15 10/02/19 21 10/01/2020 pregn belkis test, urine HCG negati ve Not Available [place] [address], [place], [address], 10/01/2020 12:46:10 06/17/19 22 06/16/2021 IMAGE GUIDE D PAP AND HPV REGAR DLESS image guided Pap, HPV regardless of Pap result SEE RESULT S BELOW CASE REPOR T: Cytol ogy Gynec ologi kati Repor t Case: [id number] Autho layton g Provi garrett: Carlos Tolbert Colle cted: 06/16 1648 SCALLOP SHUCKER Order ing Locat ion: [place] Patho logy Recei larisa: 06/17 0113 First Scree n: Ashtyn English Rescr een: Brenna ni, Bev ed, CT Speci men: Scree silvestre Pap - Image d, Cervi x STATE MENT OF ADEQU ACY: Satis facto ry for evalu ation Trans forma tion zone compo nent absen t The absen ce of an endoc ervic al compo nent was confi rmed by an addit manuel amos. FINAL DIAGN OSIS: Negat kimi for Intra epith elial Lesio n or Quoc yan (NIL) . Elect tremaine still anna d by Bev Crespo ed, CT on 2021 at 10:45 PM ----- ----- ----- ----- ----- ----- ----- ----- ----- ----- ----- ----- ----- ----- ----- ----- ----- ---- HPV RESUL TS: HPV mRNA E6/E7 : No HPV mRNA Detec shellie NOTE: This high risk HPV mRNA assay detec ts fourt een high- risk HPV types (16, 18, 31, 33, 35, 39, 45, 51, 52, 56, 58, 59, 66, 68) witho ut diffe renti ation . COMME NT: Note: This speci men was revie wed by a Cytot echno logis t and/o r Patho logis t (as indic ated in this repor t) after evalu ation using the Thinp rep Imagi ng Syste m. CLINI KATI INFOR MATIO N: Menst rual Statu s: LMP (if appli cable ): Clini kati Histo ry/Pr eviou s Pap: Type of Neopl connor (if appli cable ): Signi fican t Clini kati Findi ngs: Other Histo ry: Hormo jerzy (if appli cable ): PAP EDUCA ASHLEY L NOTE: The Pap Test is a scree silvestre test with an inher ent false negat kimi rate. Liqui d-bas ed sampl ing may decre ase, but will not elimi juana, false negat kimi resul ts. A negat kimi resul t does not precl ude the prese nce and/o r devel opmen t of disea se, since the prese nce of abnor mal cells in the sampl e depen ds on the locat ion of the lesio n and sampl ing techn ique. Cain nued regul ar [place] is the best metho d of cance r preve ntion . If repor shellie cytol ogic findi ng do not corre late with physi kati and/o r histo rical findi ngs, furth er inves tigat ion is recom jacky d, as clini beck marquez nted. Not Available [facility] (Lab) [address], [place], [address], 06/23/2021 23:47:43 08/29/19 24 08/29/2023 IMAGE GUIDE D PAP AND HPV REGAR DLESS image guided Pap, HPV regardless of Pap result SEE RESULT S BELOW CASE REPOR T: Cytol ogy Gynec ologi kati Repor t Case: [id number] Autho layton rondon Provi garrett: Carlos Tolbert Colle cted: 08/28 1706 SCALLOP SHUCKER Order ing Locat ion: [place] Patho logy Recei larisa: 08/29 1012 First Scree n: Brenna zuñiga, Bev ed, CT Rescr een: [place] Armendariz, CT Speci men: [place] Pap - Image d, Cervi x STATE MENT OF ADEQU ACY: Satis facto ry for evalu ation Trans forma tion zone compo nent prese nt ----- ----- ----- ----- ----- ----- ----- ----- ----- ----- ----- ----- ----- ----- ----- ----- ----- ---- FINAL DIAGN OSIS: Negat kimi for Intra epith elial Lesio n or Quoc yan (NIL) . Elect tremaine castillo d by [place] Armendariz, CT on 2023 at 2:47 PM ----- ----- ----- ----- ----- ----- ----- ----- ----- ----- ----- ----- ----- ----- ----- ----- ----- ---- HPV RESUL TS: HPV mRNA E6/E7 : No HPV mRNA Detec shellie NOTE: This high risk HPV mRNA assay detec ts fourt een high- risk HPV types (16, 18, 31, 33, 35, 39, 45, 51, 52, 56, 58, 59, 66, 68) witho ut diffe renti ation . COMME NT: This speci men was revie wed by a Cytot echno logis t and/o r Patho logis t (as indic ated in this repor t) after evalu ation using the Thinp rep Imagi ng Syste m. CLINI KATI INFOR MATIO N: Menst rual Statu s: LMP (if appli cable ): Clini kati Histo ry/Pr eviou s Pap: Type of Neopl connor (if appli cable ): Signi fican t Clini kati Findi ngs: Other Histo ry: Hormo jerzy (if appli cable ): PAP EDUCA ASHLEY L NOTE: The Pap Test is a scree silvestre test with an inher ent false negat kimi rate. Liqui d-bas ed sampl ing may decre ase, but will not elimi juana, false negat kimi resul ts. A negat kimi resul t does not precl ude the prese nce and/o r devel opmen t of disea se, since the prese nce of abnor mal cells in the sampl e depen ds on the locat ion of the lesio n and sampl ing techn ique. Cain nued regul ar scree silvestre is the best metho d of cance r preve ntion . If repor shellie cytol ogic findi ng do not corre late with physi kati and/o r histo rical findi ngs, furth er inves tigat ion is recom jacky d, as clini beck mraquez nted. Not Available [facility] (Lab) [address], [place], [address], 09/01/2023 15:49:42 09/05/19 25 09/04/2024 IMAGE GUIDE D PAP AND HPV REGAR DLESS image guided Pap, HPV regardless of Pap result SEE RESULT S BELOW CASE REPOR T: Cytol ogy Gynec ologi kati Repor t Case: [id number] Autho layton rondon Provi garrett: Inna Jernigan, SCALLOP SHUCKER Colle cted: 09/04 1603 Order ing Locat ion: [place] Patho logy Recei larisa: 09/05 0740 First Scree n: Brenna zuñiga, Bev ed, CT Rescr een: [place] Armendariz, CT Speci men: [place] Pap - Image d, Cervi x STATE MENT OF ADEQU ACY: Satis facto ry for evalu ation Trans forma tion zone compo nent prese nt ----- ----- ----- ----- ----- ----- ----- ----- ----- ----- ----- ----- ----- ----- ----- ----- ----- ---- FINAL DIAGN OSIS: Negat kimi for Intra epith elial Jen harris or Quoc yan ([facility]) . Elect tremaine castillo d by [place] Armendariz, CT on 025 at 1036 CDT ----- ----- ----- ----- ----- ----- ----- ----- ----- ----- ----- ----- ----- ----- ----- ----- ----- ---- HPV RESUL TS: HPV mRNA E6/E7 : No HPV mRNA Detec shellie NOTE: This high risk HPV mRNA assay detec ts fourt een high- risk HPV types (16, 18, 31, 33, 35, 39, 45, 51, 52, 56, 58, 59, 66, 68) witho ut diffe renti ation . COMME NT: This speci men was revie wed by a Cytot echno logis t and/o r Patho logis t (as indic ated in this repor t) after evalu ation using the Thinp rep Imagi ng Syste m. CLINI KATI INFOR MATIO N: Menst rual Statu s: LMP (if appli cable ): Clini kati Histo ry/Pr eviou s Pap: Type of Neopl connor (if appli cable ): Signi fican t Clini kati Findi ngs: Other Histo ry: Hormo jerzy (if appli cable ): PAP EDUCA ASHLEY L NOTE: The Pap Test is a scree silvestre test with an inher ent false negat kimi rate. Liqui d-bas ed sampl ing may decre ase, but will not elimi juana, false negat kimi resul ts. A negat kimi resul t does not precl ude the prese nce and/o r devel opmen t of disea se, since the prese nce of abnor mal cells in the sampl e depen ds on the locat ion of the lesio n and sampl ing techn ique. Cain nued regul ar scree silvestre is the best metho d of cance r preve ntion . If repor shellie cytol ogic findi ng do not corre late with physi kati and/o r histo rical findi ngs, furth er inves tigat ion is recom jacky d, as clini beck marquez nted. Not Available [facility] (Lab) [address], [place], [address], 09/06/2024 11:42:07 01/22/20 21 MAMMO , scree silvestre, bilat eral No observ ation record ed. YADIEL Not Available 2020 15:46:02 06/16/19 23 06/15/2022 MAMMO , scree silvestre, bilat eral No observ ation record ed. [address], [place], [address], 08/29/2023 15:48:18 06/16/19 23 06/15/2022 MAMMO , scree silvestre, bilat eral No observ ation record ed. [address] [facility], [place], [address], 08/29/2023 15:48:17 07/08/19 MAMMO , diagn ostic , unila teral No observ ation record ed. [place] [email or web address] Not Available 15:48:17 07/08/19 23 06/29/2022 MAMMO , diagn ostic , unila teral No observ ation record ed. [address] [facility] [address] [place] [address] [address], [place], [address], 08/29/2023 15:48:17 02/05/20 24 02/05/2024 MAMMO , scree silvestre, bilat eral No observ ation record ed. [address], [address], 09/12/2024 11:29:22 Result Notes None recorded. Problems Name Problem SNOMED Code Status Onset Date Resolution Date Notes Provider Name and Address Organization Details Recorded Time Speciali zed medical examinat ion Completed 201101/18/2012 Gynecolo gical Examinat ion;Arya rded Elsewher e: No Locat ion: [facility] [address] S ource: EHR Mba Intern joyce: N Practi ce ID: 0001 Rolan lable Time: 08:30:00 AM Thalia hein [facility] 17:19:10 Screenin g for malignan t neoplasm of cervix Completed 201108/19/2020 Pap Smear;Pr actice ID: 0001 Thalia hein [facility] 17:18:57 Screenin g for malignan t neoplasm of rectum Completed 201101/18/2012 Screenin g for malignan t neoplasm s of the rectum;R ecorded Elsewher e: No Locat ion: [facility] [address] S ource: EHR Mba Intern joyce: N Practi ce ID: 0001 Rolan lable Time: 08:30:00 AM Thalia hein [facility] 17:19:01 Atypical glandula r cells on cervical Papanico laou smear [id number] Completed 201108/19/2020 Abnormal glandula r Papanico laou smear of cervix;R ecorded Elsewher e: No Locat ion: [facility] [address] S ource: EHR Mba Intern joyce: N Practi ce ID: 0001 Rolan lable Time: 04:00:00 PM Thalia hein, [facility] 17:18:38 Pregnanc y test negative [id number] Completed 201108/19/2020 Negative Pregnanc y Test;Pra ctice ID: 0001 Thalia hein, [facility] 17:18:54 Atypical squamous cells of undeterm ined signific ance on cervical Papanico laou smear [id number] Completed 201108/19/2020 Pap Abnormal ASCUS;Pr actice ID: 0001 Thalia hein, [facility] 17:18:43 Atypical glandula r cells on vaginal Papanico laou smear [id number] Completed 201108/19/2020 ABN GLAND PAP SMR VAGINA;P ractice ID: 0001 Thalia hein, [facility] 17:18:41 Speciali zed medical examinat ion Completed 201208/19/2020 Routine gynecolo gical examinat ion;Prac westley ID: 0001 Thalia hein [facility] 17:19:10 Adult health examinat ion Completed 201408/19/2020 Routine general medical examinat ion at a health care facility ;Practic e ID: 0001 Thalia hein [facility] 05/19/202 1 17:18:34 Evaluati on finding Completed 201508/19/2020 Oth abn and inconclu sive findings on dx imaging of breast;R ecorded Elsewher e: No [facility] N Erickdonato ce ID: 0001 Rolan lable Time: 02:09:44 PM Thalia Elliott angel luis [facility] 1 17:18:45 Screenin g for malignan t neoplasm of rectum Completed 201708/19/2020 Encounte r for screenin g for malignan t neoplasm of rectum;R ecorded Elsewher e: No Locat ion: [facility] [address] [facility] N Practi ce ID: 0001 Rolan lable Time: 10:30:00 AM Thalia hein [facility] 1 17:19:01 Menopaus e present [id number] Completed 201708/19/2020 Menopaus al and female climacte james states;P ractice ID: 0001 Thalia Elliott [facility], [facility] 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 17:19:08 Primary amenorrh ea [id number] Completed 201708/19/2020 Primary amenorrh ea;Recor ded Elsewher e: No [facility] S ource: [facility] joyce: N Practi ce ID: 0001 Rolan lable Time: 10:30:00 AM Thalia Elliott angel luis [facility] 17:18:55 Imaging result abnormal [id number] Completed 201708/19/2020 Abnormal findings on diagnost ic imaging of body structur es;Recor ded Elsewher e: No Locat ion: Viri vaca [facility] S ource: EHR Mba Intern joyce: N Practi ce ID: 0001 Rolan lable Time: 09:15:00 AM Thalia Chamberlaintz [facility], [facility] 17:18:50 Disorder of abdomen Completed 201708/19/2020 Ascites; Recorded Elsewher e: No Locat ion: [facility] [address] S ource: EHR Mba Intern joyce: N Practi ce ID: 0001 Rolan lable Time: 10:15:00 AM Thalia Elliott [facility], [facility] 17:18:[address] Concept Completed 201908/19/2020 Encntr for general adult medical exam w/o abnormal findings ;Recorde d Elsewher e: No Locat ion: [facility] [address] [facility] N Erickti ce ID: 0001 Rolan lable Time: 11:00:00 AM Thalia Elliott [facility], [facility] 1 17:19:06 Human papillom a virus screenin g Completed 201908/19/2020 Encounte r for screenin g for human papillom avirus (HPV);Re corded Elsewher e: No Locat ion: [facility] [address] [facility] N Erickti ce ID: 0001 Rolan lable Time: 11:00:00 AM Thalia Elliott angel luis, [facility] 17:18:48 Amenorrh ea [id number] Completed 201908/19/2020 Amenorrh ea, unspecif ied;Arya rded Elsewher e: No Locat ion: [facility] [address] S ource: EHR Mba Intern joyce: N Practi ce ID: 0001 Rolan lable Time: 10:15:00 AM Thalia Elliott [facility], [facility] 17:18:36 Secondar y amenorrh ea [id number] Completed 201908/19/2020 Secondar y amenorrh ea;Recor ded Elsewher e: No Locat ion: [facility] S ource: EHR Mba Intern joyce: N Umesh ce ID: 0001 Rolan lable Time: 08:45:00 AM Thalia hein, [facility] 1 17:19:04 Myelofib rosis [id number] Active 2023 Thalia hein, [facility] 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 4 16:17:06 Mixed anxiety and depressi ve disorder 372799139 Active 2023 Thalia hein [facility] 4 16:17:30 Abnormal cervical Papanico laou smear 215302348 Active 2023 1 lgsil 06/05/2019 neg pap HPV high risk 07/10/2012 unsat pap neg hpv 2 ascus neg hpv Thalia hein, [facility] 4 16:19:53 Human papillom a virus infectio n 266746581 Active 2023 Thalia hein [facility] 4 16:20:02 Problem Notes None recorded. Procedures Surgical History Date Name Laterality Status Provider Name and Address Organization Details Recorded Time 024 Date of Last Mammogram completed Charlotte Cordero [facility] 09/04/2024 11:50:34 024 Date of Last Pap Smear completed Thalia Elliott [facility] 08/29/2023 15:26:42 023 colonoscopy completed Sherly Black FELA- [address], [place], [address], [facility] 08/29/2023 15:35:26 021 LEEP completed Timmy Otoole MD [address], [place], [address], [facility] 10/01/2020 16:38:32 021 LEEP completed Thalia [facility] 09/19/2023 18:44:51 021 Colposcopy completed Catherine Ken CNM [address], [place], [address], [facility] 08/19/2020 18:19:03 021 Colposcopy completed Thalianasreen Elliott [facility] 08/19/2020 17:19:48 021 Colposcopy completed Thalianasreen Elliott [facility] 08/19/2020 20:13:25 020 completed Thalia Elliott [facility] 08/19/2020 17:18:19 020 endometrial biopsy completed Thalianasreen Elliott [facility] 09/19/2023 18:45:55 014 endoscopy completed Thalia Elliott [facility] 09/19/2023 18:46:30 012 Colposcopy completed Thalianasreen Elliott [facility] 09/19/2023 18:45:14 012 mediastinoscopy completed Thalia Elliott [facility] 08/19/2020 20:11:07 010 thrombolysis of vein completed Thalia Elliott [facility] 08/19/2020 20:10:39 010 [facility] 08/19/2020 20:10:33 985 Tonsillectomy [facility] 08/19/2020 20:10:46 Imaging Results None recorded. Procedure Notes None recorded. Medical Equipment None Reported. Allergies Allergen ID Allergen Name Allergen Category Reaction Reaction Severity Criticality Documentation Date Start Date Code Code System Note Provider Name and Address Organization Details Recorded Time 47235 ciproflox acin medicatio n Not available Not available Not available 03/20/2020 2551 RxNorm Comme nt: Locat ion: Jorge jones [facility]; Not Available [facility] 0 14:20:47 62429 Product containin g penicilli n (product) medicatio n Not available Not available Not available 03/20/2020 25172 8001 SNOMED Comme nt: Locat ion: [facility]; Not Available [facility] 0 14:20:47 Medications Name Sig Start Date Stop Date Status Note LastModified by Organization Details LastModified Time furosemid e 40 mg tablet take 1 tablet by oral route every day active Not Available Not Available No t Available doxycycli ne hyclate 100 mg capsule TAKE 1 CAPSULE BY MOUTH TWICE DAILY FOR 10 DAYS 10/08 completed Not Available Not Available Not Available azithromy irvin 250 mg tablet TAKE 2 TABLETS BY MOUTH ON DAY 1, AND THEN TAKE 1 TABLET BY MOUTH ONCE A DAY ON DAY 2 THROUGH DAY 5 08/28 completed Not Available Not Available Not Available Vicodin 5 mg-500 mg tablet take 1 tablet by oral route 4 - 6 hours as needed for pain 08/15 completed Prescrib ed Elsewher e: Yes Loca tion: [facility] odify By: veronica montero DateTime : 05/12/19 12 04:00:00 PM Not Available Not Available Not Available propranol ol ER 60 mg capsule,2 4 hr,extend ed release take 2 capsule by oral route every day 06/16 completed Prescrib ed Elsewher e: Yes Loca tion: [facility] odify By: elsie aquino DateTime : 01/17/20 12 01:45:00 PM Not Available Not Available Not Available folic acid 20 mg capsule 08/15 completed Prescrib ed Elsewher e: Yes Loca tion: [facility] odify By: veronica montero DateTime : 04/28/19 12 08:30:00 AM Not Available Not Available Not Available Cathleen Low Dose Aspirin 81 mg tablet,de layed release take 1 tablet by oral route every day active Prescrib ed Elsewher e: Yes Loca tion: [facility] odify By: elsie aquino DateTime : 08/24/19 13 02:15:00 PM Not Available Not Available Not Available thiamine HCl (vitamin B1) 100 mg tablet TAKE 1 TABLET BY MOUTH ONCE DAILY active Not Available Not Available No t Available spironola ctone 25 mg tablet take 1 tablet by oral route every day 06/11 completed Prescrib ed Elsewher e: Yes Loca tion: [facility] odify By: choco montero DateTime : 05/03/19 18 10:30:00 AM Not Available Not Available Not Available Coumadin 5 mg intraveno us solution inject 1 millilit er by intraven ous route every day over as an IV bolus 08/15 completed Prescrib ed Elsewher e: Yes Loca tion: [facility] odify By: veronica montero DateTime : 04/25/19 12 08:12:11 PM Not Available Not Available Not Available nortripty line 10 mg capsule TAKE 2 CAPSULES BY MOUTH EVERY DAY active Not Available Not Available No t Available Droxia 200 mg capsule take by oral route every day 05/03 completed Prescrib ed Elsewher e: Yes Loca tion: [facility] odify By: choco montero DateTime : 01/17/20 12 01:45:00 PM Not Available Not Available Not Available omeprazol e 20 mg capsule,d elayed release 06/16 completed Not Available Not Available Not Available furosemid e 20 mg tablet 06/16 completed Not Available Not Available Not Available propranol ol 20 mg tablet active Not Available Not Available Not Available Pepcid 40 mg/5 mL (8 mg/mL) oral suspensio n take 2.5 millilit er by oral route 2 times every day 08/15 completed Prescrib ed Elsewher e: Yes Loca tion: [facility] odify By: veronica monetro DateTime : 04/28/19 12 08:30:00 AM Not Available Not Available Not Available nortripty line 50 mg capsule take 1 capsule by oral route 2 times every day 09/14 completed Prescrib ed Elsewher e: Yes [facility] By: choco montero DateTime : 05/03/19 18 10:30:00 AM Not Available Not Available Not Available spironola ctone 50 mg tablet active Not Available Not Available No t Available Vitamins and Minerals tablet 08/15 completed Prescrib ed Elsewher e: Yes Loca tion: [facility] odify By: veronica montero DateTime : 04/28/19 12 08:30:00 AM Not Available Not Available Not Available Lovenox 300 mg/3 mL subcutane ous solution inject by subcutan eous route every 12 hours 01/16 completed Prescrib ed Elsewher e: Yes Loca tion: [facility] odify By: elsie aquino DateTime : 08/16/19 12 10:00:00 AM Not Available Not Available Not Available B12 active Not Available Not Availa ble Not Available Jakafi 5 mg tablet take 1 tablet by oral route 2 times every day 06/11 completed Prescrib ed Elsewher e: Yes Loca tion: [facility] odify By: twan montero DateTime : 06/05/19 11:00:00 AM Not Available Not Available Not Available Jakafi 10 mg tablet 08/28 completed Not Available Not Available Not Available Ojjaara active Not Available Not Avail able Not Available Vitals Date Recorded Body height Body mass index (BMI) Body weight Systolic And Diastolic Provider Name and Address Organization Details Last Updated DateTime 06/16/2021 166.37 cm 30.7 kg/m2 92778.49 g 120/60 mm[Hg] Luz Franz [facility] 06/16/2021 15:25:19 Date Recorded Body height Body mass index (BMI) Body weight Systolic And Diastolic Provider Name and Address Organization Details Last Updated DateTime 08/29/2023 166.37 cm 25.6 kg/m2 57069.41 g 99/65 mm[Hg] Thalia Elliott [facility] 08/29/2023 15:23:33 Date Recorded Body height Body mass index (BMI) Body weight Systolic And Diastolic Provider Name and Address Organization Details Last Updated DateTime 09/04/2024 166.37 cm 27.5 kg/m2 82906.52 g 89/56 mm[Hg] Charlottehugh Lazarney [facility] 09/04/2024 11:48:52 Date Recorded Body height Body mass index (BMI) Body weight Systolic And Diastolic Provider Name and Address Organization Details Last Updated DateTime 10/01/2020 166.37 cm 30.8 kg/m2 78782.37 g 94/60 mm[Hg] [facility] 10/01/2020 12:41:32 Date Recorded Body height Body mass index (BMI) Body weight Systolic And Diastolic Provider Name and Address Organization Details Last Updated DateTime 10/08/2020 166.37 cm 31.1 kg/m2 76765.55 g 104/64 mm[Hg] [facility] 10/08/2020 15:49:59 Social History Question Answer Notes LastModified by Organizat ion Details LastModified Time Tobacco Smoking Status Never Smoker Luz Franz [facility] 06/16/2021 15:25:27 Do You Have An Advance Directive? Yes Information n ot available 06/11/2020 How Many Years Have You Consumed Alcohol? 40 Information not available 06/11/2020 Are You Blind Or Do You Have Difficulty Seeing? No Information n ot available 06/11/2020 What Is Your Level Of Caffeine Consumption? Occasional Information not available 06/16/2021 In The 14 Days Before Symptom Onset, Have You Had Close Contact With A Laboratory-confirm ed COVID-19 While That Case Was Ill? No Information n ot available 06/11/2020 In The 14 Days Before Symptom Onset, Have You Had Close Contact With A Person Who Is Under Investigation For COVID-19 While That Person Was Ill? No Information not available 06/11/2020 Have You Been To An Area Known To Be High Risk For COVID-19? No Information not available 06/11/2020 Are You Deaf Or Do You Have Serious Difficulty Hearing? No Information not available 06/11/2020 What Type Of Diet Are You Following? REGULAR Information n ot available 06/11/2020 What Is The Highest Grade Or Level Of School You Have Completed Or The Highest Degree You Have Received? [id number] Information not available 06/11/2020 Are There Any Guns Present In Your Home? No Information not available 06/11/2020 Do You Use Protection During Sex? No Information not available 06/16/2021 Do You Use Your Seat Belt Or Car Seat Routinely? Yes Information not available 06/11/2020 Do You Have Smoke And Carbon Monoxide Detectors In Your Home? Yes Information not available 06/11/2020 How Much Tobacco Do You Smoke? No Information not available 06/11/2020 Do You Use Sunscreen Routinely? Yes Information not available 06/11/2020 Have You Used IV Drugs? No Information not available 06/11/2020 Do You Have Difficulty Walking Or Climbing Stairs? No Information not available 06/16/2021 Sex: Unknown Functional Status Question Answer Note LastModified by Organizat ion Details LastModified Time Do you use any illicit or recreational drugs? No Information not available 06/11/2020 What is your level of alcohol consumption? Occasional Information not available 06/11/2020 Are you able to walk independently without assistance or assistive devices? YESWOREST Information not available 06/11/2020 Are you able to care for yourself independently? 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 No Information not available 06/16/2021 What is your exercise level? None Information not available 06/11/2020 Mental Status Question Answer Note LastModified by Organization D etails LastModified Time Do you feel stressed (tense, restless, nervous, or anxious, or unable to sleep at night)? [id number] Information not available 06/11/2020 Family History Relationship Description Onset Age of this Age Resolved Age Notes LastModified by Organization Details LastModified Time Mother Anemia Not available 09:15:03 Mother Carcinoma in situ of breast [email or web address] Not available 07/2024 11:25:29 Father Carcinoma in situ of breast [email or web address] Not available 07/2024 11:25:29 Father Intracranial aneurysm [email or web address] Not available 07/2024 11:25:29 Paternal Grandmother Carcinoma in situ of breast [email or web address] Not available 07/2024 11:25:29 Brother Intracranial aneurysm [email or web address] Not available 07/2024 11:25:29 Medical History Condition Response Allergies (Food, seasonal, environmental ) N Other Y Drug/Latex Allergies/Reactions Y Blood Transfusion N Breast Cancer N Dermatologic Disorders N Lung Disease N Defects or Inherited Disease N Breast Problem Y Gestational Diabetes N Hematologic disorders N Anesthesia Complications N History of STI Y Deep Vein Thrombosis Y Polycystic ovary syndrome N Anxiety Disorder Y Autoimmune disease Y Arthritis N Polyps N Infertility N Acid Reflux (GERD) N History of abnormal pap Y Cancer N Varicosities N Stroke N Neurologic/Epilepsy N Endometriosis N High Cholesterol N Fibromyalgia N Headaches N Kidney Disease N Heart Problems N Thyroid Problems N Kidney or Bladder Problems N GI Problems Y Eating Disorder N Anemia Y Art (IVF or FET) N Psychiatric Illness N Ovarian Cancer N Diabetes N Pulmonary (TB, Asthma) N Hepatitis/Liver Disease N No Past Medical History N Eczema N Urinary Tract Infection N Abuse/Domestic Violence N Asthma N Trauma/Violence N Depression/ depression Y Heart Disease N Pre-Eclampsia N Hypertension Y Osteoporosis N Thrombophilias Y Gynecological History Statement/Question Response Abnormal Pap Yes Date of Last Mammogram 02/05/2024 Date of LMP 04/03/2013 STIs/STDs Y HPV Vaccine N Colposcopy 08/19/2020 Current Control Method Menopause Age at First Child 29 If Post Menopausal, Age at Menopause 48 Date of Last Colonoscopy Sexually Active? Y Menses Monthly N Date of DEXA bone scan Age of first menstrual cycle 18 Date of Last Pap Smear 08/29/2023 Sexual Problems? N Desired Control Method None LMP Unknown 10/01/2019 06/11/2020 Obstetrics History GPAL:G 2 P 2 0 0 2 Type Value Full Term 2 Living 2 Total 2 Past Encounters Encounter ID Performer Location Encounter Start Date Encounter Closed Date Diagnosis/Indication Diagnosis SNOMED-CT Code Diagnosis ICD10 Code Diagnosis IMO Codes Diagnosis Note [id number] [facility] [address] [address] 06/11/2020 10:23:19 06/11/2020 11:07:56 Gynecologic examination 10323784 Z01.419 Take Calcium with Vitamin D 12-1500mg daily. Do monthly self breast exams. It is advised to get annual flu shot in the fall and she could obtain at [facility] or [facility] care clinic. If you haven't received the Tdap vaccine in the last 10 years you should obtain one as well. Have mammogram yearly, bone density every 2-3 years and colonoscop y every 5-10 years depending on findings and history. Engage in daily exercise of low impact aerobic exercise 45-60 minutes 4-5 times weekly. Avoid tobacco and illicit drugs as well as using moderation with alcohol intake less than 1-2 8 oz beverages daily. This lifestyle behavior pattern will lead to less health conditions and longer life span. If BMI greater than 25 weight watchers or dietary consult advised. Questions have been answered. Patient appears to understand instructio ns, but if you have any further questions call or respond to this email pap/hpv sent Pap/hpv hx wnl we discussed consider [id number] pap/hpv since mongamous x 25yrs mammo ordered Colon-UTD Dexa n/a No issues or concerns Menopausal symptom 57313 002 N95.9 No menses x 1yr FSH/LH check ordered [id number] Catherine Ken CNM [facility] [address] [address] 08/19/2020 17:00:37 08/19/2020 18:40:20 Low grade squamous intraepithelial lesion on cervical Papanicolaou smear [id number] 9105 R87.612 [id number] Timmy Otoole MD [facility] [address] [address] 09/14/2020 15:20:12 09/14/2020 16:23:54 Dysplasia of cervix 69062481 N87.9 this patient is a 54-year-ol d female. She has IRVIN 2. We discussed HPV, cervical dysplasia, cervical cancer. We discussed HPV transmissi on, natural history, and dormancy. We discussed cervical dysplasia screening, diagnosis, treatment. She was given precaution s about follow-up. She was warned of the potential cervical cancer as an outcome in this situation. We discussed LEEP procedure. We discussed the procedure in detail. I showed her video. We discussed the risks, benefits, and alternativ es. We spent 25 minutes face-to-fa ce. [id number] [facility] [address] [address] 06/16/2021 14:52:54 06/16/2021 15:53:55 Gynecologic examination 44069436 Z01.419 Take Calcium with Vitamin D 12-1500mg daily. Do monthly self breast exams. It is advised to get annual flu shot in the fall and she could obtain at [facility] or [facility] clinic. If you haven't received the Tdap vaccine in the last 10 years you should obtain one as well. Have mammogram yearly, bone density every 2-3 years and colonoscop y every 5-10 years depending on findings and history. Engage in daily exercise of low impact aerobic exercise 45-60 minutes 4-5 times weekly. Avoid tobacco and illicit drugs as well as using moderation with alcohol intake less than 1-2 8 oz beverages daily. This lifestyle behavior pattern will lead to less health conditions and longer life span. If BMI greater than 25 weight watchers or dietary consult advised. Questions have been answered. Patient appears to understand instructio ns, but if you have any further questions call or respond to this email pap/hpv sentGeneti c screen discussed mammo ordered Colon-UTD Dexa n/a No issues or concerns [id number] Timmy Otoole MD [facility] [address],[place] [address] 10/01/2020 12:08:41 10/01/2020 16:42:48 Pre-surgery testing [id number] Z01.89 Dysplasia of cervix 7339 1008 N87.9 this 54-year-ol d patient with cervical dysplasia underwent LEEP procedure today. She tolerated the procedure well. She will follow up as needed. We will contact her with pathology results. [id number] Timmy Otoole MD [facility] [address],[place] [address] 10/08/2020 15:44:20 10/08/2020 21:24:22 Dysplasia of cervix 05945809 N87.9 r roland pathology results. Patient is recovering normally after LEEP. Margins are free of any severe dysplasia. High-grade dysplasia was observed in the biopsy specimen. She will follow up every 6 months for the next 18 months. we had a lengthy discussion regarding the pathology specimen. We had discussion about the prognosis and follow-up. [id number] Sher[facility] Black , [facility] [address],[place] [address] 08/29/2023 15:10:04 08/29/2023 15:52:24 Gynecologic examination [id number] Z01.419 Z11.51 Take Calcium with Vitamin D 12-1500mg daily. Do monthly self breast exams. It is advised to get annual flu shot in the fall and she could obtain at [facility] or [facility] care clinic. If you haven't received the Tdap vaccine in the last 10 years you should obtain one as well. Have mammogram yearly, bone density every 2-3 years and colonoscop y every 5-10 years depending on findings and history. Engage in daily exercise of low impact aerobic exercise 45-60 minutes 4-5 times weekly. Avoid tobacco and illicit drugs as well as using moderation with alcohol intake less than 1-2 8 oz beverages daily. This lifestyle behavior pattern will lead to less health conditions and longer life span. If BMI greater than 25 weight watchers or dietary consult advised. Questions have been answered. Patient appears to understand instructio ns, but if you have any further questions call or respond to this emailPap/h pv sentSTD Screen declinedGe netic Screen discussedC olon Screen UTD 2022 WNL PCPDexa Screen PCPRoutine Labs PCP Screening mammography 24 034536 Z1231 [id number] LIBIA Dey [facility] [address] [address] 09/04/2024 11:25:12 09/04/2024 12:34:40 Gynecologic examination 55161888 Z01.318 [id number] WWEpostmen opausalPap - done todaySTI screen - declinedMa mmogram - order given, due ol on cancer screening - UTDDexa - n/aRoutine labs - UTD/PCPRTC in 1 yr or sooner if needed Do monthly self breast exams.It is advised to get annual flu shot in the fall and she could obtain at local pharmacy. If you haven't received the Tdap vaccine in the last 10 years you should obtain one as well.Have mammogram yearly, bone density every 2-3 years and stay up to date on colon cancer screening. Engage in regular exercise. Avoid tobacco and illicit drugs. This lifestyle behavior pattern will lead to less health conditions and longer life span. If BMI greater than 25 dietary consult advised.Qu estions have been answered. Screening mammography 24 824965 Z1231 [id number] Health Concerns Section Related Observation LastModified by Organization Detai ls LastModified Time None Recorded Concern Status LastModified by Organization Details LastModified Time None Recorded Advance Directives Directive Y: Payers Insurance Date Sequence Insurance Name Policy Number Policy Bello Covered Member ID Bello Member ID Guarantor Name 09/01/2024 1 [facility] [id number] Jules Guo [id number] [place] Guo 06/14/2021 1 [place] [id number] Jules Guo [id number] Savannah Guo 08/25/2023 1 [facility] [id number] Jules Guo [id number] Savannah Guo Notes Date Note Type Note Provider Name and Address Organization Details Recorded Time 1 text/html this patient is a 54-year-old female with cervical dysplasia. She presents for LEEP procedure. Timmy Otoole MD [address], [place], [address], [facility] 10/01/2020 16:39:48 1 text/html reviewed pathology results. Patient is recovering normally after LEEP. Margins are free of any severe dysplasia. High-grade dysplasia was observed in the biopsy specimen. She will follow up every 6 months for the next 18 months. Timmy Otoole MD [address], [place], [address], [facility] 10/08/2020 19:04:38 2 text/html Annual Charge Auditor Post-MenopausalReported by PatientGenitourinary symptomsFor menopausal symptoms, patient reportsno menopausal symptomsandnormal vaginal lubrication. For vaginal bleeding, patient reportshistory of menopause having occurredandno history of post menopausal bleeding. For urinary symptoms, patient reportsno hematuria,no incontinence,no nocturia, andno urinary frequency. For vulva, patient reportsno genital lesionandno vulvar atrophy. For vagina, patient reportsnormal vaginal dischargeandno vaginal atrophy.Breast symptomsFor breast, patient reportsno breast lump,no nipple discharge, andno breast pain.Psychological symptomsFor sexual complaints, patient reportsno sexual complaints. For psychological symptoms, patient reportsno depressionandno anxiety.Preventative measuresFor preventive measures, patient reportsencourage regular mammograms starting age 40,encourage self breast examination,encourage regular exercise,encourage no tobacco use,needs to schedule mammogram, andhistory of recent colonoscopy. Sherly Black, [facility]- [address], [place], [address], [facility] 06/16/2021 15:44:01 4 text/html Annual Charge Auditor Post-MenopausalReported by PatientGenitourinary symptomsFor menopausal symptoms, patient reportsno menopausal symptomsandnormal vaginal lubrication. For vaginal bleeding, patient reportshistory of menopause having occurredandno history of post menopausal bleeding. For urinary symptoms, patient reportsno hematuria,no incontinence,no nocturia, andno urinary frequency. For vulva, patient reportsno genital lesionandno vulvar atrophy. For vagina, patient reportsnormal vaginal dischargeandno vaginal atrophy.Breast symptomsFor breast, patient reportsno breast lump,no nipple discharge, andno breast pain.Psychological symptomsFor sexual complaints, patient reportsno sexual complaints. For psychological symptoms, patient reportsno depressionandno anxiety.Preventative measuresFor preventive measures, patient reportsencourage regular mammograms starting age 40,encourage self breast examination,encourage regular exercise,encourage no tobacco use,needs to schedule mammogram, andhistory of recent colonoscopy. Sherly Black, [facility] [address], [place], [address], [facility] 08/29/2023 15:50:16 5 text/html Annual Charge Auditor Post-MenopausalReported by PatientGenitourinary symptomsFor menopausal symptoms, patient reportsno menopausal symptomsandnormal vaginal lubrication. For vaginal bleeding, patient reportshistory of menopause having occurredandno history of post menopausal bleeding. For urinary symptoms, patient reportsno hematuria,no incontinence,no nocturia, andno urinary frequency. For vulva, patient reportsno genital lesionandno vulvar atrophy. For vagina, patient reportsnormal vaginal dischargeandno vaginal atrophy.Breast symptomsFor breast, patient reportsno breast lump,no nipple discharge, andno breast pain.Psychological symptomsFor sexual complaints, patient reportsno sexual complaints. For psychological symptoms, patient reportsno depressionandno anxiety.Preventative measuresFor preventive measures, patient reportsencourage regular mammograms starting age 40,encourage self breast examination,encourage regular exercise, andencourage no tobacco use.58yowwepostmenopausal h/o LEEP ast pap 08/2023 : nilm, HPV (-)mammogram last olonoscopy UTD has myeloproliferative neoplasm and myelofibrosis (managed by hematology/oncology) Charlotte hein, [facility] 09/04/2024 14:52:43 OBGyn Episode Ob Episode Information Episode Created Date Number of Fetuses Patient Bloodtype Patient rh Status Prepregnancy Weight lbs Domestic Partner Domestic Partner Phone Father Name Slip Presser Status 06/12/19 21 1 CLOSED Fetus Data First Name Last Name Admitted to NICU Weight (g) Sex Living Outcome Pediatric Complications Fetus ID Race Codes Race Delivery Type 3231.84 3 M Full Term 8409 Vaginal Delivery Taras Calculation Initial Taras Date Initial Exam Date Initial Exam Provider Initial Ultrasound Date Last Menstrual Period Date Ultra Sound Weeks Gestation 0 Eighteen To Twenty Week Taras Update Ultra Sound Date Fundal Height At Umbil Quickening Date Ultra Sound Latest Weeks Gestation Final Taras Confirmed By Final Taras Confirmed Date Final Taras Date Ultra Sound Latest Days Gestation 0 0 Menstrual History Last Menstrual Date Menses Monthly On Bcp Conception Prior Menses Frequency Hcg Plus Date Menarche Onset Age Delivery Information Delivery Date Delivery Type Labor Anesthesia Weeks Gestation Incision Type Labor Labor Length Hrs Delivered By Post Complications Tubal Sterilization Discharge Date Comments 8 38 Discharge Information Feeding Method Contraceptive Method Maternal HG B and HCT Levels Ob Episode Information Episode Created Date Number of Fetuses Patient Bloodtype Patient rh Status Prepregnancy Weight lbs Domestic Partner Domestic Partner Phone Father Name Slip Presser Status 06/12/19 21 1 CLOSED Fetus Data First Name Last Name Admitted to [facility] Weight (g) Sex Living Outcome Pediatric Complications Fetus ID Race Codes Race Delivery Type 3883.65 4704 M Full Term 8408 Vaginal Delivery Taras Calculation Initial Taras Date Initial Exam Date Initial Exam Provider Initial Ultrasound Date Last Menstrual Period Date Ultra Sound Weeks Gestation 0 Eighteen To Twenty Week Taras Update Ultra Sound Date Fundal Height At Umbil Quickening Date Ultra Sound Latest Weeks Gestation Final Taras Confirmed By Final Taras Confirmed Date Final Taras Date Ultra Sound Latest Days Gestation 0 0 Menstrual History Last Menstrual Date Menses Monthly On Bcp Conception Prior Menses Frequency Hcg Plus Date Menarche Onset Age Delivery Information Delivery Date Delivery Type Labor Anesthesia Weeks Gestation Incision Type Labor Labor Length Hrs Delivered By Post Complications Tubal Sterilization Discharge Date Comments 6 40 Discharge Information Feeding Method Contraceptive Method Maternal HG B and HCT Levels
--- OUTSIDE RECORDS SUMMARY | 2025-02-19 05:07 | XMS_ITS | Patient Health Record ---
Author Organization [facility] Address [address] [place] [address] Care Team Providers Care Offset Platemaker Name Role Phone JOHN LEY MD Primary Care Provider Stephanie Solorzano Unavailable [phone] Stu Bello [phone] Reason For Referral No Information Plan Of Treatment Next Appt Details Provider Name:Stu Bello, 1 04/22/2024 01:30:00 PM, [address] [place] [address], [phone], Insurance Providers Payer Name Payer Address Payer Phone Subscriber Number Group Number Insured Name Patient Relationship to Insured Coverage Start Date Coverage End Date [facility] [address] [address] [place] [address] [phone] [id number] Savannah Guo Self - patient is the insured
--- OUTSIDE RECORDS SUMMARY | 2025-02-19 05:07 | XMS_ITS | Clinical Summary ---
Author Organization [facility] Address [address] [place] [id number] Phone [email or web address] Care Sourcing Specialist Name Role Phone Unavailable Primary Care Provider Unavailabl e Social History Tobacco Use Types Packs/Day Years Used Date Smoking Tobacco: Never Assessed Intimate Partner Violence Answer Date R ecorded Insults You Not on file 04/16/2021 Threatens You Not on file 04/16/2021 Screams at You Not on file 04/16/2021 Physically Hurt Not on file 04/16/2021 Intimate Partner Violence Score Not on file 04/16/2021 Stress Answer Date Recorded Stress in your Life Not on file 02/09/2024 Dealing with Stress 3 02/09/2024 Comments Unknown Sex and Gender Information Value Date Recorded Sex Assigned at Not on file Legal Sex Female 11:47 AM [employer] Gender Identity Not on file Sexual Orientation Not on file Last Filed Vital Signs Vital Sign Reading Time Taken Comments Blood Pressure 104/68 01/13/2023 12:00 AM CDT Pulse - - Temperature - - Respiratory Rate - - Oxygen Saturation - - Inhaled Oxygen Concentration - - Weight 74.4 kg (164 lb) 01/13/2023 12:00 AM CDT Height 165.1 cm (5' 5) 01/13/2023 12:00 AM CDT Body Mass Index 27.29 01/13/2023 12:00 AM CDT Plan of Treatment Not on file
--- NOTE | 2025-02-19 07:10 | PC.NURSE ---
Report per Cristal RN; patient awaiting room at [facility] for continuity of care, family at bedside.
--- NOTE | 2025-02-19 17:30 | PC.NURSE ---
This RN spoke to the patient and several times throughout the day, there was one call from [facility] with wanting an update on the patient. patient has been provided ambulation to the BR as well as minimal amounts of PO fluids. patient is alert and oriented with a significant improvement in the disorientation that was previously expressed as concerning; when asked to provide five words that start with the letter P the patient was previously unable to do so - she would state a word that started with the letter N. SAUD Dodd has been informed of concerns and will address home medications and labs.
[2025-02-19 18:23] LABS: Hematocrit 21.8 % (37.0-47.0); Mean Corpuscular HGB Conc 30.3 g/dl (32-36); Mean Corpuscular Hemoglobin 26.9 pg (26-34); Mean Corpuscular Volume 89.0 fl (80-100); Platelet Count Result 232 k/mm3 (150-375); Red Blood Count 2.45 M/mm3 (4.2-5.4); White Blood Count 25.5 K/mm3 (4.5-10.0)
[2025-02-19 18:37] LABS: Alanine Aminotransferase 13 U/L (6-35); Albumin Level 3.2 g/dL (3.5-5.1); Alkaline Phosphatase 150 U/L (38-126); Anion Gap 8 mmol/L (4-12); Aspartate Amino Transferase 29 U/L (14-36); Bilirubin,Total 1.7 mg/dL (0.2-1.3); Blood Urea Nitrogen 20 mg/dL (7-17); Calcium 9.3 mg/dL (8.4-10.2); Carbon Dioxide 20 mmol/L (22-30); Chloride 103 mmol/L (98-107); Estimated CRCL calculation 51 ml/min; Estimated Glomerular Filt Rate 59; Glucose 98 mg/dL (65-110); Lipase 96 U/L (23-300); Potassium 3.8 mmol/L (3.4-5.0); Sodium 131 mmol/L (137-145); Total Protein 6.2 g/dL (6.3-8.2)
[2025-02-19 18:47] LABS: Hemoglobin 6.6 g/dL (12.0-15.0)
[2025-02-19 18:51] LABS: Band Neutrophils Percent 3 % (0-6); Lymphocytes Absolute Manual 1.53 K/mm3 (1.1-4.5); Lymphocytes Percent Manual 6.0 % (18-44); Monocytes Absolute Manual 1.78 K/mm3 (0.1-0.90); Monocytes Percent Manual 7 % (3-9); Neutrophils Absolute Manual 22.18 K/mm3 (1.3-6.7); Neutrophils Percent Manual 84 % (46-73); Total Cells Counted 100
[2025-02-19 18:53] LABS: Anisocytosis 1+; Schistocytes Occasional
[2025-02-19 18:54] LABS: Burr Cells 1+; Hypochromasia 1+; Ovalocytes Occasional; Poikilocytosis 1+
--- NOTE | 2025-02-19 21:11 | PC.NURSE ---
This RN talked to [facility] to provide update about Hgb and blood transfusion
[2025-02-19] MEDS: SODIUM CHLORIDE 0.9% IV 250 ML 30 ML IV CONT (21:57)
[2025-02-19] MEDS: TUBING, BLOOD PLUM PUMP TUBING 1 EACH XX (22:15)
--- NOTE | 2025-02-19 22:19 | PC.NURSE ---
Addendum entered by Cristal Krishnamurthy RN 02/20/25 04:19: EDP made aware Original Note: Pt made this RN aware that she had a BM this evening with dark tarry stool
--- NOTE | 2025-02-19 23:34 | PC.NURSE ---
Pt transferred to private room and hospital bed.
[2025-02-20] VITALS (43 sets, daily range): BP systolic 106–138; BP diastolic 63–92; PULSE 121–137; RESP 19–28; TEMP 36.8–37.1; O2SAT 96–100
[2025-02-20] MEDS: PANTOPRAZOLE SODIUM IV 40 MG VIAL 80 MG IV PUSH (01:01)
[2025-02-20] MEDS: CEFEPIME 2 GM in SODIUM CHLORIDE 0.9% IV 50 ML 100 ML IVPB ×2 (01:02→12:12)
[2025-02-20] MEDS: PANTOPRAZOLE SODIUM IV 80 MG in SODIUM CHLORIDE 0.9% IV 500 ML 50 MG IV CONT (01:35)
[2025-02-20] MEDS: VANCOMYCIN HCL 1,000 MG in SODIUM CHLORIDE 0.9% IV 250 ML 250 MG IVPB (02:49)
[2025-02-20 02:51] LABS: Hematocrit 24.8 % (37.0-47.0); Hemoglobin 7.7 g/dL (12.0-15.0); Mean Corpuscular HGB Conc 31.0 g/dl (32-36); Mean Corpuscular Hemoglobin 27.3 pg (26-34); Mean Corpuscular Volume 87.9 fl (80-100); Platelet Count Result 189 k/mm3 (150-375); Red Blood Count 2.82 M/mm3 (4.2-5.4); White Blood Count 24.6 K/mm3 (4.5-10.0)
[2025-02-20 03:22] LABS: Band Neutrophils Percent 3 % (0-6); Eosinophils Absolute Manual 0.49 K/mm3 (0.02-0.50); Eosinophils Percent Manual 2 % (0-4); Lymphocytes Absolute Manual 1.96 K/mm3 (1.1-4.5); Lymphocytes Percent Manual 8.0 % (18-44); Monocytes Absolute Manual 1.23 K/mm3 (0.1-0.90); Monocytes Percent Manual 5 % (3-9); Neutrophils Absolute Manual 20.91 K/mm3 (1.3-6.7); Neutrophils Percent Manual 82 % (46-73); Total Cells Counted 100
[2025-02-20 03:23] LABS: Anisocytosis 1+; Hypochromasia 1+; Poikilocytosis 1+; Polychromasia 1+
[2025-02-20 03:24] LABS: Burr Cells 1+; Schistocytes Rare
[2025-02-20 05:09] LABS: Alanine Aminotransferase 15 U/L (6-35); Albumin Level 3.1 g/dL (3.5-5.1); Alkaline Phosphatase 152 U/L (38-126); Anion Gap 8 mmol/L (4-12); Aspartate Amino Transferase 28 U/L (14-36); Bilirubin,Total 1.4 mg/dL (0.2-1.3); Blood Urea Nitrogen 18 mg/dL (7-17); Calcium 9.3 mg/dL (8.4-10.2); Carbon Dioxide 21 mmol/L (22-30); Chloride 103 mmol/L (98-107); Estimated CRCL calculation 53 ml/min; Estimated Glomerular Filt Rate > 60; Glucose 136 mg/dL (65-110); Potassium 3.5 mmol/L (3.4-5.0); Sodium 132 mmol/L (137-145); Total Protein 6.1 g/dL (6.3-8.2)
--- NOTE | 2025-02-20 05:28 | ED.PROGRESS ---
Subjective Date/time seen: 02/20/25 05:28 Interval history: Patient presented to [facility] on 02/18 for altered mental status and lethargy shortly after [facility]CP on 02/[facility] at [facility]. Workup here found a significant leukocytosis with hemoglobin of 8. Lactic acid 1.9. CT revealed mesenteric vein thrombus, large pericolic abscess around the ascending colon. Patient started empirically on vanc and cefepime. Patient accepted by Dr. Coyle at [facility]. Patient remains pending bed availability at [facility]. Review of Systems Review of Systems All systems reviewed & are unremarkable except as noted in HPI and below Exam Narrative GENERAL: Well-appearing, well-nourished, and in no acute distress. HEAD: Normocephalic, atraumatic. EYES: PERRLA and EOMI. ENT: Nares clear, no rhinorrhea or epistaxis. Mucous membranes dry. NECK: Supple. CHEST: Clear to auscultation. No respiratory distress. HEART: Regular rate and rhythm. No murmur heard. Normal peripheral pulses. ABDOMEN: Soft, nontender, nondistended, normal active bowel sounds. EXTREMITIES: Normal range of motion. No edema. SKIN: Warm, dry, no rash. Pale appearing NEURO: No focal deficits. Alert and oriented x4 PSYCH: Normal mood and affect. Objective Data Vital Signs Vital Signs: Vital Signs - 24 hr 02/19/25 07:01 02/19/25 07:16 02/19/25 07:31 Temperature Pulse Rate 116 H 113 H 115 H Respiratory Rate 19 19 18 Blood Pressure 119/67 117/65 116/65 Pulse Oximetry 99 99 99 02/19/25 07:46 02/19/25 08:01 02/19/25 08:16 Temperature Pulse Rate 115 H 116 H 118 H Respiratory Rate 18 18 21 H Blood Pressure 121/67 120/70 130/63 Pulse Oximetry 98 98 95 02/19/25 08:31 02/19/25 08:46 02/19/25 09:01 Temperature Pulse Rate 120 H 118 H 119 H Respiratory Rate 22 H 20 19 Blood Pressure 119/55 L 125/64 119/73 Pulse Oximetry 97 98 99 02/19/25 09:16 02/19/25 09:31 02/19/25 09:46 Temperature Pulse Rate 121 H 120 H 118 H Respiratory Rate 21 H 19 19 Blood Pressure 123/75 118/54 L 109/52 L Pulse Oximetry 100 97 98 02/19/25 10:01 02/19/25 10:16 02/19/25 10:37 Temperature Pulse Rate 118 H 119 H 121 H Respiratory Rate 20 21 H 22 H Blood Pressure 103/65 104/64 102/73 Pulse Oximetry 98 100 02/19/25 10:46 02/19/25 11:01 02/19/25 11:30 Temperature Pulse Rate 120 H 119 H 120 H Respiratory Rate 21 H 24 H 23 H Blood Pressure 117/63 117/68 136/71 Pulse Oximetry 99 100 100 02/19/25 11:31 02/19/25 11:46 02/19/25 12:01 Temperature Pulse Rate 121 H 120 H 120 H Respiratory Rate 23 H 22 H 23 H Blood Pressure 114/58 L 115/64 113/66 Pulse Oximetry 100 99 99 02/19/25 12:31 02/19/25 12:46 02/19/25 13:01 Temperature Pulse Rate 121 H 119 H 118 H Respiratory Rate 21 H 19 17 Blood Pressure 113/81 119/69 126/69 Pulse Oximetry 99 99 99 02/19/25 13:16 02/19/25 13:31 02/19/25 13:46 Temperature Pulse Rate 118 H 119 H 119 H Respiratory Rate 21 H 20 22 H Blood Pressure 127/71 127/63 120/71 Pulse Oximetry 99 99 99 02/19/25 14:01 02/19/25 14:16 02/19/25 14:31 Temperature Pulse Rate 119 H 119 H 123 H Respiratory Rate 20 19 19 Blood Pressure 104/74 125/59 L 118/68 Pulse Oximetry 99 99 100 02/19/25 14:46 02/19/25 15:01 02/19/25 15:16 Temperature Pulse Rate 121 H 123 H 122 H Respiratory Rate 24 H 20 21 H Blood Pressure 113/60 121/55 L 118/57 L Pulse Oximetry 100 100 100 02/19/25 15:31 02/19/25 15:46 02/19/25 16:01 Temperature Pulse Rate 120 H 120 H 120 H Respiratory Rate 21 H 20 22 H Blood Pressure 117/56 L 122/70 111/56 L Pulse Oximetry 99 100 100 02/19/25 16:16 02/19/25 16:31 02/19/25 16:46 Temperature Pulse Rate 120 H 119 H 119 H Respiratory Rate 20 24 H 20 Blood Pressure 132/71 113/73 118/70 Pulse Oximetry 100 100 99 02/19/25 17:01 02/19/25 17:16 02/19/25 17:31 Temperature Pulse Rate 119 H 119 H 122 H Respiratory Rate 17 20 24 H Blood Pressure 125/63 117/77 131/64 Pulse Oximetry 100 100 98 02/19/25 17:46 02/19/25 18:01 02/19/25 18:16 Temperature Pulse Rate 123 H 126 H 123 H Respiratory Rate 24 H 24 H 23 H Blood Pressure 122/61 128/47 L 119/61 Pulse Oximetry 99 100 99 02/19/25 18:31 02/19/25 21:41 02/19/25 21:46 Temperature Pulse Rate 125 H 142 H 136 H Respiratory Rate 19 20 26 H Blood Pressure 131/65 150/77 H 135/67 Pulse Oximetry 100 100 100 02/19/25 21:47 02/19/25 22:01 02/19/25 22:05 Temperature 98.1 F 98.6 F Pulse Rate 135 H 132 H 133 H Respiratory Rate 29 H 24 H 23 H Blood Pressure 135/67 126/49 L 126/49 L Pulse Oximetry 98 100 100 02/19/25 22:16 02/19/25 22:31 02/19/25 22:46 Temperature Pulse Rate 133 H 130 H 130 H Respiratory Rate 25 H 23 H 21 H Blood Pressure 125/78 110/51 L 103/49 L Pulse Oximetry 02/19/25 23:00 02/19/25 23:01 02/19/25 23:05 Temperature 98.6 F Pulse Rate 132 H 130 H 130 H Respiratory Rate 21 H 23 H 22 H Blood Pressure 153/58 H 153/58 H Pulse Oximetry 100 02/19/25 23:15 02/19/25 23:16 02/19/25 23:32 Temperature 99.1 F Pulse Rate 126 H 127 H 127 H Respiratory Rate 24 H 20 20 Blood Pressure 121/47 L 134/72 Pulse Oximetry 100 02/19/25 23:32 02/19/25 23:36 02/19/25 23:45 Temperature Pulse Rate 126 H 126 H 124 H Respiratory Rate 26 H 21 H 25 H Blood Pressure 133/72 134/72 Pulse Oximetry 100 98 98 02/19/25 23:46 02/20/25 00:00 02/20/25 00:01 Temperature Pulse Rate 123 H 126 H 126 H Respiratory Rate 21 H 22 H 23 H Blood Pressure 120/73 Pulse Oximetry 98 98 97 02/20/25 00:15 02/20/25 00:16 02/20/25 00:30 Temperature Pulse Rate 127 H 127 H 126 H Respiratory Rate 22 H 25 H 21 H Blood Pressure 124/72 121/75 Pulse Oximetry 99 97 98 02/20/25 00:31 02/20/25 00:45 02/20/25 00:46 Temperature Pulse Rate 129 H 127 H 127 H Respiratory Rate 19 24 H 21 H Blood Pressure 135/71 Pulse Oximetry 99 99 98 02/20/25 01:00 02/20/25 01:01 02/20/25 01:15 Temperature Pulse Rate 127 H 128 H Respiratory Rate 24 H 25 H Blood Pressure 135/63 Pulse Oximetry 99 98 100 02/20/25 01:30 02/20/25 01:45 02/20/25 02:00 Temperature Pulse Rate 128 H 127 H 129 H Respiratory Rate 25 H 25 H 24 H Blood Pressure Pulse Oximetry 99 100 99 02/20/25 02:15 02/20/25 02:30 02/20/25 02:45 Temperature Pulse Rate 126 H 126 H 128 H Respiratory Rate 21 H 25 H 23 H Blood Pressure Pulse Oximetry 98 96 02/20/25 03:00 02/20/25 03:15 02/20/25 03:30 Temperature Pulse Rate 126 H 128 H 125 H Respiratory Rate 24 H 23 H 21 H Blood Pressure Pulse Oximetry 02/20/25 03:45 02/20/25 04:00 02/20/25 04:15 Temperature Pulse Rate 125 H 127 H 129 H Respiratory Rate 23 H 22 H 24 H Blood Pressure Pulse Oximetry 02/20/25 04:30 02/20/25 04:45 02/20/25 05:00 Temperature Pulse Rate 127 H 131 H 137 H Respiratory Rate 25 H 23 H 28 H Blood Pressure Pulse Oximetry 100 02/20/25 05:15 02/20/25 05:30 02/20/25 05:45 Temperature Pulse Rate 125 H 127 H 127 H Respiratory Rate 22 H 25 H 22 H Blood Pressure Pulse Oximetry 98 99 99 02/20/25 06:00 Temperature Pulse Rate 127 H Respiratory Rate 23 H Blood Pressure Pulse Oximetry 99 Intake/Output Intake/Output: Intake & Output 02/17/25 02/18/25 02/19/25 02/20/25 23:59 23:59 23:59 23:59 Intake Total 2950 450 Balance 2950 450 Meds/Results Medications: Active Medications Generic Name Dose Route Start Last Admin Trade Name Freq PRN Reason Stop Dose Admin Cefepime HCl 2 gm/ Sodium 50 mls @ 100 mls/hr 02/19/25 12:00 02/20/25 01:32 Chloride IVPB Infused Q12H RAFAL Infusion Vancomycin HCl 1,000 mg/ 250 mls @ 250 mls/hr 02/20/25 02:00 02/20/25 04:04 Sodium Chloride IVPB Infused Q24H RAFAL Infusion Pantoprazole Sodium 80 mg/ 500 mls @ 50 mls/hr 02/19/25 22:34 02/20/25 01:35 Sodium Chloride IV CONT 02/20/25 08:33 50 mls/hr .Q10H STA Administration Radiology Results: ITS Impressions Chest X-Ray 02/18/25 21:08 IMPRESSION: 1. No acute findings in the AP portable chest. Head CT 02/19/25 06:41 IMPRESSION: 1. No acute intracranial findings. Abdomen/Pelvis CT 02/19/25 07:23 IMPRESSION: 1. 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 2. Portal venous hypertension. 3. Periumbilical ventral hernia containing fat. 4. Small volume of ascites. 5. 7.8 x 5.5 x 4.9 cm rim-enhancing fluid collection around the ascending colon, consistent with abscess. 6. 1.5 cm hypodense mass in right hepatic lobe, which may be benign or malignant. Labs Labs: Laboratory Results - last 24 hr 02/19/25 02/19/25 02/20/25 18:16 20:03 02:45 WBC 25.5 H 24.6 H RBC 2.45 L 2.82 L Hgb 6.6 L* 7.7 L Hct 21.8 L 24.8 L MCV 89.0 87.9 MCH 26.9 27.3 MCHC 30.3 L 31.0 L RDW 26.3 H 24.2 H Plt Count 232 189 MPV 10.4 9.7 Immature Gran % (Auto) Not Reportable Not Reportable Neut % (Auto) Not Reportable Not Reportable Lymph % (Auto) Not Reportable Not Reportable [place] % (Auto) Not Reportable Not Reportable Eos % (Auto) Not Reportable Not Reportable Baso % (Auto) Not Reportable Not Reportable Lymph # (Auto) Not Reportable Not Reportable [place] # (Auto) Not Reportable Not Reportable Eos # (Auto) Not Reportable Not Reportable Baso # (Auto) Not Reportable Not Reportable Abs Immat Gran (auto) Not Reportable Not Reportable Absolute Neuts (auto) Not Reportable Not Reportable Absolute Nucleated RBC Not Reportable Not Reportable Total Counted 100 100 Neutrophils % (Manual) 84 H 82 H Band Neutrophils % 3 3 Lymphocytes % (Manual) 6.0 L 8.0 L Monocytes % (Manual) 7 5 Eosinophils % (Manual) 2 Basophils % (Manual) Nucleated RBC % Not Reportable Not Reportable Abs Neuts (Manual) 22.18 H 20.91 H Abs Lymphs (Manual) 1.53 1.96 Abs Monocytes (Manual) 1.78 H 1.23 H Absolute Eos (Manual) 0.49 Abs Basophils (Manual) Nucleated RBCs 2 1 Atypical Lymphocytes Present Platelet Estimate Adequate Adequate Polychromasia 1+ Hypochromasia 1+ 1+ Poikilocytosis 1+ 1+ Anisocytosis 1+ 1+ Ovalocytes Occasional Tomasz Cells 1+ 1+ Bite Cells Acanthocytes (Spur) Schistocytes Occasional Rare Sodium 131 L Potassium 3.8 Chloride 103 Carbon Dioxide 20 L Anion Gap 8 BUN 20 H Creatinine 0.97 Estim Creat Clear Calc 51 Estimated GFR 59 Glucose 98 Calcium 9.3 Total Bilirubin 1.7 H AST 29 ALT 13 Alkaline Phosphatase 150 H Total Protein 6.2 L Albumin 3.2 L Lipase 96 Blood Type O Negative Antibody Screen Negative Crossmatch See Detail 02/20/25 02/20/25 04:56 05:44 WBC 27.1 H RBC 3.06 L Hgb 8.3 L Hct 27.4 L MCV 89.5 MCH 27.1 MCHC 30.3 L RDW 24.5 H Plt Count 205 MPV 11.0 H Immature Gran % (Auto) Not Reportable Neut % (Auto) Not Reportable Lymph % (Auto) Not Reportable [place] % (Auto) Not Reportable Eos % (Auto) Not Reportable Baso % (Auto) Not Reportable Lymph # (Auto) Not Reportable [place] # (Auto) Not Reportable Eos # (Auto) Not Reportable Baso # (Auto) Not Reportable Abs Immat Gran (auto) Not Reportable Absolute Neuts (auto) Not Reportable Absolute Nucleated RBC Not Reportable Total Counted 100 Neutrophils % (Manual) 79 H Band Neutrophils % 13 H Lymphocytes % (Manual) 3 L Monocytes % (Manual) 3 Eosinophils % (Manual) 2 Basophils % (Manual) 1 Nucleated RBC % Not Reportable Abs Neuts (Manual) 24.93 H Abs Lymphs (Manual) 0.81 L Abs Monocytes (Manual) 0.81 Absolute Eos (Manual) 0.54 H Abs Basophils (Manual) 0.27 H Nucleated RBCs 2 Atypical Lymphocytes Platelet Estimate Adequate Polychromasia 1+ Hypochromasia 1+ Poikilocytosis 1+ Anisocytosis 2+ Ovalocytes 1+ Pace Cells 1+ Bite Cells 1+ Acanthocytes (Spur) Occasional Schistocytes 1+ Sodium 132 L Potassium 3.5 Chloride 103 Carbon Dioxide 21 L Anion Gap 8 BUN 18 H Creatinine 0.93 Estim Creat Clear Calc 53 Estimated GFR > 60 Glucose 136 H Calcium 9.3 Total Bilirubin 1.4 H AST 28 ALT 15 Alkaline Phosphatase 152 H Total Protein 6.1 L Albumin 3.1 L Lipase Blood Type Antibody Screen Crossmatch Progress Note: A&P Assessment and Plan (1) Portal hypertension: Code(s): K76.6 - Portal hypertension Status: Acute (2) Sepsis: Qualifiers: Sepsis type: sepsis due to unspecified organism Sepsis acute organ dysfunction status: without acute organ dysfunction Qualified Code(s): A41.9 - Sepsis, unspecified organism Code(s): A41.9 - Sepsis, unspecified organism Status: Acute (3) Intra-abdominal abscess: Code(s): K65.1 - Peritoneal abscess Status: Acute Plan Patient on vanc and cefepime. Patient was found to have melanotic stools and declining hemoglobin now 6.6. She was transfused 1 unit PRBC. and hgb improved to 7.7 on recheck. Patient remains pending bed at [facility]. Signed out to Dr. Christianson due to shift change Time Spent With Patient Time with patient: 15 - 25 minutes
[2025-02-20 05:54] LABS: Hematocrit 27.4 % (37.0-47.0); Hemoglobin 8.3 g/dL (12.0-15.0); Mean Corpuscular HGB Conc 30.3 g/dl (32-36); Mean Corpuscular Hemoglobin 27.1 pg (26-34); Mean Corpuscular Volume 89.5 fl (80-100); Platelet Count Result 205 k/mm3 (150-375); Red Blood Count 3.06 M/mm3 (4.2-5.4); White Blood Count 27.1 K/mm3 (4.5-10.0)
[2025-02-20 06:26] LABS: Band Neutrophils Percent 13 % (0-6); Basophils Absolute Manual 0.27 K/mm3 (0.0-0.1); Basophils Percent Manual 1 % (0-1); Eosinophils Absolute Manual 0.54 K/mm3 (0.02-0.50); Eosinophils Percent Manual 2 % (0-4); Lymphocytes Absolute Manual 0.81 K/mm3 (1.1-4.5); Lymphocytes Percent Manual 3 % (18-44); Monocytes Absolute Manual 0.81 K/mm3 (0.1-0.90); Monocytes Percent Manual 3 % (3-9); Neutrophils Absolute Manual 24.93 K/mm3 (1.3-6.7); Neutrophils Percent Manual 79 % (46-73); Total Cells Counted 100
[2025-02-20 06:28] LABS: Acanthocytes Occasional; Anisocytosis 2+; Burr Cells 1+; Hypochromasia 1+; Ovalocytes 1+; Poikilocytosis 1+; Polychromasia 1+; Schistocytes 1+
[2025-02-20] MEDS: metroNIDAZOLE 500 MG/ISO 100ML 500 MG/100 ML BAG 100 MG IVPB (10:42)
--- NOTE | 2025-02-20 16:14 | PC.NURSE ---
1523 [facility] called for transfer to [facility] Rm [phone] [facility] - [facility] called declined saying it would be at least 2-3 hrs for ALS truck [id number] ALS [facility] called for transfer to [facility] Rm [phone] - ETA 30min
--- NOTE | 2025-02-20 16:42 | PC.NURSE ---
Report to transport team
== END 2025-02-20 16:43 | disposition short-term general hospital (02) ==
PROVIDERS: Emergency Medicine; Student in an Organized Health Care Education/Training Program; Emergency Provider Emergency Medicine; PCP Family Medicine
DX: A41.9 Sepsis, unspecified organism (principal); K55.059 Acute (reversible) ischemia of intestine, part and extent unspecified; K76.6 Portal hypertension; K65.1 Peritoneal abscess; R41.82 Altered mental status, unspecified; R53.1 Weakness; D72.829 Elevated white blood cell count, unspecified; Z86.718 Personal history of other venous thrombosis and embolism; Z79.622 Long term (current) use of Janus kinase inhibitor; R00.0 Tachycardia, unspecified; R94.31 Abnormal electrocardiogram [ECG] [EKG]; K43.9 Ventral hernia without obstruction or gangrene; R16.0 Hepatomegaly, not elsewhere classified
CPT/HCPCS: 36415; 36430; 70450; 71045; 74177; 80053; 81001; 82140; 83605; 83690; 84145; 84484; 85025; 85610; 85730; 86850; 86900; 86901; 86923; 87637; 93005; 96361; 96365; 96366; 96367; 96375; 99285; J0692; J1836; J2470; J3373; J7030; J7040; J7050; P9016; Q9967